=== PATIENT | female | born 1965 | race Caucasian/White ===

== ENCOUNTER 2025-07-01 13:53 | Outpatient (AMB) | payer OTHER, SELFPAY ==
--- NOTE | 2025-07-01 13:54 | MHC.OFFVIS ---
Vital Signs 07/01/25 13:55 Height 5 ft 5 in Weight 183 lb 13.848 oz BMI 30.6 BP 132/74 Blood Pressure Location Lt brachial Position Sitting Pulse 90 Pulse Source Pulse Oximeter Pulse Oximetry (%) 99 Oxygen Delivery Method Room Air Intake Visit Reasons: Hyperthyroidism Intake Note: New patient present today for Hyperthyroidism. 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 Diagnosed with hypothyroidism in 2004, was on levothyroxine 50 mcg daily for a long time. in 2023 noted to have fluctuations, downtrated from 75 to 25 mcg daily with some adjustements. Has been off it since end of November 2024. Outside labs reviewed 05/21/2025 TSH less than 0.005 Free T4 normal at 1.71 (0.82-1.77 ng/dL) 03/07/2025 TSH less than 0.005 Free T4 2.62 12/09/2024 TSH less than 0.005 Free T4 3.55 Patient currently denies diarrhea or constipation, changes in appearance of eyes or vision changes, tremors, increased diaphoresis. ? Lost 30 lbs from April 2024 to April 2025, and now gained back 8 lbs Some heat intolerance post menopausal Enerygy is much better now Reports anxiety , worsening somehwat Hair loss and dry skin Intermittent palpitations. normal stress test Sep 2024. Menopausal since 56 years. Was having joint pains , resolved. Patient denies any difficulty swallowing, pain on swallowing or voice changes or difficulty breathing. Patient denies any history of childhood neck radiation. Denies having ever used lithium, amiodarone or biotin supplements. has been off biotin since February 2025. Patient denies any family history of thyroid cancer or thyroid disease. Physical exam General: sitting comfortably in no acute distress HEENT: normocephalic/atraumatic, moist oral mucosa Neck: supple, symmetrical, no thyromegaly , no dorsocervical or supraclavicular fat pads Cardiac: normal heart sounds Pulm: normal breath sounds B/L, no added breath sounds Extremities: Very mild tremor noted [facility], [facility] Medical History (Updated 07/01/25 @ 14:28 by Yasmine Leon MD) Hyperthyroidism Surgical History H/O breast biopsy H/O breast surgery History of tonsillectomy History of appendectomy Social History Alcohol intake: current Alcohol intake frequency: a few times a week Patient Tobacco Use Status: Never used Tobacco Physical Exam Vital Signs: Last Vital Signs Pulse 90 07/01/25 13:55 BP 132/74 07/01/25 13:55 Pulse Ox 99 07/01/25 13:55 Oxygen Delivery Method Room Air 07/01/25 13:55 BMI result Body Mass Index 30.6 Assessment & Plan Assessment & Plan (1) Hyperthyroidism: Code(s): E05.90 - Thyrotoxicosis, unspecified without thyrotoxic crisis or storm Category: Medical Plan: 59-year-old female coming in today for initial evaluation of hyperthyroidism. She was diagnosed with hypothyroidism in her 30s and had been on levothyroxine with doses ranging from 50-75 mcg daily for a long time, with stable blood work however that work from March 2024 showed suppressed TSH with a elevated free T4, and dose of levothyroxine was titrated down from 75 mcg daily up to 25 mcg daily with a eventually stopping it in November 2024. She has now been off levothyroxine since end of November 2024. Most recent blood work in April 2025 showed suppressed TSH with normal free T4. Currently not on any biotin supplements. Had this point we will repeat her labs. It might be that she just did not need the levothyroxine and TSH sometimes just take some time to normalize, given her free T4 has normalized this is reassuring. However at this time we will repeat blood work along with the extended antibody panel. If her TSH is low and free T4 is high, with negative antibodies, we will consider doing an uptake and scan. Overall she feels better since stopping the levothyroxine. Does not have any overt symptoms of hyperthyroidism except intermittent palpitations and a very mild tremor. Plan: -ordered TSH, free T4, total T3, TSH receptor, TSI and TPO antibody levels -follow up in 4 weeks to discuss results Plan I spent 45 minutes in reviewing the record, seeing the patient and documenting in the medical record. Orders: Orders Triiodothyronine T3 Total Today E0 - Thyrotoxicosis, unspecified without thyrotoxic crisis or storm Thyroid Stimulating Immunoglob Today E0 - Thyrotoxicosis, unspecified without thyrotoxic crisis or storm Thyroid Stimulating Hormone Today - Thyrotoxicosis, unspecified without thyrotoxic crisis or storm Free T4 (Free Thyroxine) Today E0 - Thyrotoxicosis, unspecified without thyrotoxic crisis or storm Thyrotropin Receptor Antibody Today - Thyrotoxicosis, unspecified without thyrotoxic crisis or storm Thyroid Peroxidase Antibodies Today E0 - Thyrotoxicosis, unspecified without thyrotoxic crisis or storm Coding Level of Care Code New Pt Level 4 (98429) Diagnoses Hyperthyroidism E0 Time Spent (min) 45
[2025-07-01 13:55] VITALS: BP 132/74; PULSE 90; O2SAT 99; BMI 30.6
== END 2025-07-01 14:42 | disposition home or self-care (01) ==
LOC: HO.ENCR 13:53
PROVIDERS: PCP Student in an Organized Health Care Education/Training Program; Visit Provider Student in an Organized Health Care Education/Training Program
DX: E05.90 Thyrotoxicosis, unspecified without thyrotoxic crisis or storm (principal)
CPT/HCPCS: 99204

== ENCOUNTER 2025-07-01 13:53 | Outpatient (REF) | payer OTHER, SELFPAY | END 2025-07-01 13:54 | disposition home or self-care (01) | LOC: HO.LAB 13:53 | PROVIDERS: PCP Internal Medicine; Visit Provider Student in an Organized Health Care Education/Training Program | DX: E05.90 Thyrotoxicosis, unspecified without thyrotoxic crisis or storm (principal); Z01.84 Encounter for antibody response examination | CPT/HCPCS: 36415; 83520; 84445; 84480; 86376 ==

== ENCOUNTER 2025-07-31 15:25 | Outpatient (AMB) | payer OTHER, SELFPAY ==
[2025-07-31 15:26] VITALS: BP 116/74; PULSE 83; O2SAT 100; BMI 29.9
--- NOTE | 2025-07-31 15:26 | MHC.OFFVIS ---
Vital Signs 07/31/25 15:26 Height 5 ft 5 in Weight 179 lb 14.355 oz BMI 29.9 BP 116/74 Blood Pressure Location Lt brachial Position Sitting Pulse 83 Pulse Source Pulse Oximeter Pulse Oximetry (%) 100 Oxygen Delivery Method Room Air Intake Visit Reasons: Hyperthyroidism Intake Note: Patient present today for Hyperthyroidism office visit. 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 Diagnosed with hypothyroidism in 2004, was on levothyroxine 50 mcg daily for a long time. in 2023 noted to have fluctuations, downtrated from 75 to 25 mcg daily with some adjustements. Has been off it since end of November 2024. Outside labs reviewed 05/21/2025 TSH less than 0.005 Free T4 normal at 1.71 (0.82-1.77 ng/dL) 03/07/2025 TSH less than 0.005 Free T4 2.62 12/09/2024 TSH less than 0.005 Free T4 3.55 Patient currently denies diarrhea or constipation, changes in appearance of eyes or vision changes, tremors, increased diaphoresis. ? Lost 30 lbs from April 2024 to April 2025, and now gained back 8 lbs Some heat intolerance post menopausal Enerygy is much better now Reports anxiety , worsening somehwat Hair loss and dry skin Intermittent palpitations. normal stress test Sep 2024. Menopausal since 56 years. Was having joint pains , resolved. Patient denies any difficulty swallowing, pain on swallowing or voice changes or difficulty breathing. Patient denies any history of childhood neck radiation. Denies having ever used lithium, amiodarone or biotin supplements. has been off biotin since February 2025. Patient denies any family history of thyroid cancer or thyroid disease. Interval history 07/01/25: Total T3-250, TSI antibodies elevated at 245, TPO antibodies elevated at 77, TSH receptor antibodies elevated at 14.19. TSH and free T4 not done. reports anxiety, palpitations and tremor Labs done at [facility] on 07/12/2025 TSH less than 0.005 Free T4 4.79 (0.82-1.77) TSH receptor antibodies 18.7 TSI 21.3 (0.00-0.55) TPO antibodies 111 (0-34 Physical exam General: sitting comfortably in no acute distress HEENT: normocephalic/atraumatic, moist oral mucosa Neck: supple, symmetrical, no thyromegaly , no dorsocervical or supraclavicular fat pads Cardiac: normal heart sounds Pulm: normal breath sounds B/L, no added breath sounds Extremities: Very mild tremor noted Laboratory Tests 07/01/25 15:12 Total T3 250 H Thyroid Stim Immunoglob 245 H Thyroid Peroxidase Ab 77 H TSH Receptor Ab 14.19 H Labs done at [facility] on 07/12/2025 TSH less than 0.005 Free T4 4.79 (0.82-1.77) TSH receptor antibodies 18.7 TSI 21.3 (0.00-0.55) TPO antibodies 111 (0-34) [facility] Medical History (Updated 07/01/25 @ 14:28 by Yasmine Leon MD) Hyperthyroidism Surgical History H/O breast biopsy H/O breast surgery History of tonsillectomy History of appendectomy Social History Alcohol intake: current Alcohol intake frequency: a few times a week Patient Tobacco Use Status: Never used Tobacco Physical Exam Vital Signs: Last Vital Signs Pulse 83 07/31/25 15:26 BP 116/74 07/31/25 15:26 Pulse Ox 100 07/31/25 15:26 Oxygen Delivery Method Room Air 07/31/25 15:26 BMI result Body Mass Index 29.9 Assessment & Plan Assessment & Plan (1) Hyperthyroidism: Code(s): E05.90 - Thyrotoxicosis, unspecified without thyrotoxic crisis or storm Category: Medical Plan: 59-year-old female coming in today for fup of hyperthyroidism. She was diagnosed with hypothyroidism in her 30s and had been on levothyroxine with doses ranging from 50-75 mcg daily for a long time, with stable blood work however that work from March 2024 showed suppressed TSH with a elevated free T4, and dose of levothyroxine was titrated down from 75 mcg daily up to 25 mcg daily with a eventually stopping it in November 2024. She has now been off levothyroxine since end of November 2024. Currently not on any biotin supplements. Had this point we will repeat her labs. Labs done at [facility] on 07/12/2025 TSH less than 0.005 Free T4 4.79 (0.82-1.77) TSH receptor antibodies 18.7 TSI 21.3 (0.00-0.55) TPO antibodies 111 (0-34 Consistent with hyperthyroidism in the setting of Graves disease. At this point we will start her on methimazole. The following were discussed as potential side effects of methimazole: - Serious skin rashes - nausea, vomiting, or severe hepatic injury - Agranulocytosis: a rare side effect of methimazole involves a severe decrease in the production of white blood cells. This condition is extremely serious, but affects only one out of every 200 to 500 people who take an antithyroid drug. Agranulocytosis more commonly occurs within the first three months of starting treatment with an antithyroid drug, but can occur at any time. If patient develops a fever (temperature above 100.5F), or other signs or symptoms of infection, she should stop taking the tapazole and immediately have a complete blood count (CBC) done. Serious and potentially life threatening infections, or even , can occur before agranulocytosis resolves. However, once the antithyroid drug is stopped, agranulocytosis usually resolves within a week. - Arthralgias, myalgias - Renal: Nephritis - Fever Patient will stop medication and call our office if these occur. Plan: -start methimazole 10 mg daily -ordered TSH, free T4, total T3 , CBC with diff, LFTs to be done in 4 weeks, we will reach out with the results -follow up in 4-5 months Plan I spent 30 minutes in reviewing the record, seeing the patient and documenting in the medical record. Orders: Orders Thyroid Stimulating Hormone 4 Weeks E05.90 - Thyrotoxicosis, unspecified without thyrotoxic crisis or storm Triiodothyronine T3 Total 4 Weeks E05.90 - Thyrotoxicosis, unspecified without thyrotoxic crisis or storm Liver Panel 4 Weeks E05.90 - Thyrotoxicosis, unspecified without thyrotoxic crisis or storm Free T4 (Free Thyroxine) 4 Weeks E05.90 - Thyrotoxicosis, unspecified without thyrotoxic crisis or storm Complete Blood Count Auto Diff 4 Weeks E05.90 - Thyrotoxicosis, unspecified without thyrotoxic crisis or storm Medications: New methimazole 10 mg PO DAILY 30 tabs 4RF Patient Instructions: Start methimazole 10 mg daily The following were discussed as potential side effects of methimazole: - Serious skin rashes - nausea, vomiting, or severe hepatic injury - Agranulocytosis: a rare side effect of methimazole involves a severe decrease in the production of white blood cells. This condition is extremely serious, but affects only one out of every 200 to 500 people who take an antithyroid drug. Agranulocytosis more commonly occurs within the first three months of starting treatment with an antithyroid drug, but can occur at any time. If patient develops a fever (temperature above 100.5F), or other signs or symptoms of infection, she should stop taking the tapazole and immediately have a complete blood count (CBC) done. Serious and potentially life threatening infections, or even , can occur before agranulocytosis resolves. However, once the antithyroid drug is stopped, agranulocytosis usually resolves within a week. - Arthralgias, myalgias - Renal: Nephritis - Fever Patient will stop medication and call our office if these occur. If you have fever, flu-like symptoms, sore throat or rash, call us during office hours after holding the medicine. If you have nausea, vomiting, pale stools, dark urine, jaundiced appearance, call us during office hours after holding the medicine. Repeat blood work in 4 weeks, orders placed Coding Level of Care Code Est Pt Level 4 (20562) Diagnoses Hyperthyroidism E05.90 Time Spent (min) 30
== END 2025-07-31 15:55 | disposition home or self-care (01) ==
LOC: HO.ENCR 15:26
PROVIDERS: PCP Student in an Organized Health Care Education/Training Program; Visit Provider Student in an Organized Health Care Education/Training Program
DX: E05.90 Thyrotoxicosis, unspecified without thyrotoxic crisis or storm (principal)
CPT/HCPCS: 99214

== ENCOUNTER 2025-08-30 11:15 | Outpatient (REF) | payer OTHER, SELFPAY ==
[2025-08-30 13:08] LABS: MANUAL DIFF FLAG NO
[2025-08-30 13:39] LABS: Hematocrit 39.9 % (37.0-47.0); Hemoglobin 12.8 g/dl (12.0-16.0); Imm Gran Abs Auto 0.01 X10*3/uL (0.00-0.03); Imm Gran Pct Auto 0.1 % (0.0-0.4); Lymphocytes Absolute Auto 2.5 X10*3/uL (1.2-4.9); Mean Corpuscular HGB Conc 32.1 g/dl (31.0-35.0); Mean Corpuscular Hemoglobin 28.3 pg (27.0-33.0); Mean Corpuscular Volume 88.3 fL (80.0-98.0); NRBC Abs Auto 0.000 X10*3/uL (0.0-0.012); NRBC Pct Auto 0.0 /100WBC (0.0-0.2); Platelet Count 284 X10*3/uL (160-400); Red Blood Count 4.52 X10*6/uL (4.20-5.50); White Blood Count 7.1 X10*3/uL (4.8-10.8)
--- OUTSIDE RECORDS SUMMARY | 2025-08-30 13:39 | XMS_ITS | Data Portability ---
Author Organization [facility], Main Office Address [address] [facility] [address] [place] [id number] Care Team Providers Care Breaker Oiler Name Role Phone KHOA BRAVO Primary Care Provider Unavailgisella e [facility] Orthotic Practitioner GO [facility] Medical Oncologist FAISAL YANES Breast Surgeon [facility] Shaper Setter Assessment Encounter Date Assessment Date Assessment LastModified by Organization Details LastModified Time 04/01/2025 04/01/2025 Discussed with patient the signs/symptom s warranted for a return to office visit and/or an ER visit. Patient understood and agreed with the plan. Not available 04/01/2025 12:00:11 Plan of Treatment Reminders Order Date Submit Date Provider Last Modified By Organization Details Last Modified Time Details Appointments None recor ded. Lab TSH + free T4, serum 2024 025 KELLEY [facility] (Centralized Electronic Ordering - All Locations), Patient Can Go To The Location Of Their Choice, [id number] 5 09:10:10 vitam in D, 25-hy droxy , total , serum 2024 025 KELLEY [facility] (Centralized Electronic Ordering - All Locations), Patient Can Go To The Location Of Their Choice, [id number] 5 09:10:08 CMP, serum or plasm a 2024 025 KELLEY [facility] (Centralized Electronic Ordering - All Locations), Patient Can Go To The Location Of Their Choice, 5 09:10:09 lipid panel , serum 2024 025 KELLEY [facility] (Centralized Electronic Ordering - All Locations), Patient Can Go To The Location Of Their Choice, 5 09:10:09 TSH + free T4, serum 2024 025 KELLEY [facility] (Centralized Electronic Ordering - All Locations), Patient Can Go To The Location Of Their Choice, 5 06:07:38 TSH + free T4, serum 2023 024 KELLEY [facility] (Centralized Electronic Ordering - All Locations), Patient Can Go To The Location Of Their Choice, 18:06:14 lipid panel , serum 2023 024 KELLEY [facility] (Centralized Electronic Ordering - All Locations), Patient Can Go To The Location Of Their Choice, 18:06:15 CMP, serum or plasm a 2023 024 KELLEY [facility] (Centralized Electronic Ordering - All Locations), Patient Can Go To The Location Of Their Choice, 18:06:14 PTH (para thyro id hormo ne), intac t + calci um, serum or plasm a 2023 024 KELLEY [facility] (Centralized Electronic Ordering - All Locations), Patient Can Go To The Location Of Their Choice, 4 18:06:16 vitam in D, 25-hy droxy , total , serum 2023 024 KELLEY [facility] (Centralized Electronic Ordering - All Locations), Patient Can Go To The Location Of Their Choice, 4 18:06:16 TSH + free T4, serum 2022 023 [email or web address] [facility] (Centralized Electronic Ordering - All Locations), Patient Can Go To The Location Of Their Choice, 14:56:16 vitam in D, 25-hy droxy , total , serum 2022 023 KELLEY [facility] (Centralized Electronic Ordering - All Locations), Patient Can Go To The Location Of Their Choice, 3 15:17:59 CMP, serum or plasm a 2022 023 KELLEY [facility] (Centralized Electronic Ordering - All Locations), Patient Can Go To The Location Of Their Choice, 3 15:04:09 lipid panel , serum 2022 023 KELLEY [facility] (Centralized Electronic Ordering - All Locations), Patient Can Go To The Location Of Their Choice, 3 15:04:10 Referral gastr bouchra barbosa ist refer ral - Needs colon cance r adam connorsg 2022 023 trinidad [facility], [address] [facility], [place], [address], 4 08:58:23 Procedures None recor ded. Surgeries None recor ded. Imaging exerc ise stres s echoc ardio gram - had colon oscop y and murmu r was heard by fran montes de oca, she has notic ed dyspn ea on exert ion x 4 weeks . r/o valve probl em 2023 024 trinidad [facility] [place], [address] [place] [address], [place], [address], 5 10:03:42 Medication Orders loraz epam 0.5 mg table t 2023 024 bsolivanmatto s [facility] [address], [place], [address], 5 08:57:56 loraz epam 0.5 mg table t 2022 023 bsolivanmatto s [facility] [address], [place], [address], 5 08:57:56 Patient TargetsNo targets recorded. Patient Instructions Encounter Date Encounter Id Patient Instructions Last Modified By Organization Details Last Modified Time 03/31/2023 [id number] insomnia: care instructions [email or web address] Not available 03/31/2023 11:33:23 learning about colon cancer [email or web address] Not available 03/31/2023 11:33:23 To call or retur n for worsening or concerns [email or web address] Not available 03/31/2023 11:23:17 05/22/2024 [id number] insomnia: care instructions [email or web address] Not available 05/22/2024 09:38:03 learning about colon cancer [email or web address] Not available 05/22/2024 09:38:03 To call or retur n for worsening or concerns jthabet Not available 05/22/2024 09:35:12 09/19/2024 [id number] viral respirator y infection: care instructions [email or web address] Not available 09/19/2024 11:07:54 To call or retur n for worsening or concerns jthabet Not available 09/19/2024 11:04:01 04/01/2025 [id number] hyperthyroidism: care instructions Not available 04/01/2025 10:02:28 Reason for Referral Shaper Setter Referral for Screening for malignant neoplasm of colon Needs colon cancer screening Referring Physician: Alma Rosa Sherman, Family Medicine, Encounter Date: 03/31/2023 Results Created Date Observation Date Name Description Value Unit Range Abnormal Flag Note LastModifiedBy Organization Detail LastModifiedTime 05/16/2005/16/2023 COMPR EHENS NETTE METAB OLIC PANL glucose 104 mg/dL (70-99 ) high Not Available [facility] (Centralized Electronic Ordering - All Locations) Patient Can Go To The Location Of Their Choice, 05/16/2023 15:04:08 05/16/20 23 05/16/2023 COMPR EHENS NETTE METAB OLIC PANL BUN 15 mg/dL (6-20) Not Available [facility] (Centralized Electronic Ordering - All Locations) Patient Can Go To The Location Of Their Choice, 05/16/2023 15:04:08 05/16/20 23 05/16/2023 COMPR EHENS NETTE METAB OLIC PANL creatinine 0.8 mg/dL (0.5-1 .0) Not Available [facility] (Centralized Electronic Ordering - All Locations) Patient Can Go To The Location Of Their Choice, 05/16/2023 15:04:08 05/16/2005/16/2023 COMPR EHENS NETTE METAB OLIC PANL sodium 139 mmol/ L (133-1 45) Not Available [facility] (Centralized Electronic Ordering - All Locations) Patient Can Go To The Location Of Their Choice, 05/16/2023 15:04:08 05/16/2005/16/2023 COMPR EHENS NETTE METAB OLIC PANL potassium 4.4 mmol/ L (3.6-5 .2) Not Available [facility] (Centralized Electronic Ordering - All Locations) Patient Can Go To The Location Of Their Choice, 05/16/2023 15:04:08 05/16/2005/16/2023 COMPR EHENS NETTE METAB OLIC PANL chloride 104 mmol/ L (98-10 7) Not Available [facility] (Centralized Electronic Ordering - All Locations) Patient Can Go To The Location Of Their Choice, 05/16/2023 15:04:08 05/16/2005/16/2023 COMPR EHENS NETTE METAB OLIC PANL bicarbonate 24 mmol/ L (22-29 ) Not Available [facility] (Centralized Electronic Ordering - All Locations) Patient Can Go To The Location Of Their Choice, 05/16/2023 15:04:08 05/16/2005/16/2023 COMPR EHENS NETTE METAB OLIC PANL anion gap 11 (4-17) Not Available [facility] (Centralized Electronic Ordering - All Locations) Patient Can Go To The Location Of Their Choice, 05/16/2023 15:04:08 05/16/2005/16/2023 COMPR EHENS NETTE METAB OLIC PANL albumin 4.3 gm/dL (3.4-4 .8) Not Available [facility] (Centralized Electronic Ordering - All Locations) Patient Can Go To The Location Of Their Choice, 05/16/2023 15:04:08 05/16/2005/16/2023 COMPR EHENS NETTE METAB OLIC PANL calcium 10.7 mg/dL (8.6-1 0.5) high Not Available [facility] (Centralized Electronic Ordering - All Locations) Patient Can Go To The Location Of Their Choice, 05/16/2023 15:04:08 05/16/2005/16/2023 COMPR EHENS NETTE METAB OLIC PANL bilirubin,to edson 0.3 mg/dL (0-1.2 ) Not Available [facility] (Central[facility] Ordering - All Locations) Patient Can Go To The Location Of Their Choice, 05/16/2023 15:04:08 05/16/2005/16/2023 COMPR EHENS NETTE METAB OLIC PANL total protein 6.6 gm/dL (6.2-8 .2) Not Available [facility] (Central[facility] Electronic Ordering - All Locations) Patient Can Go To The Location Of Their Choice, 05/16/2023 15:04:08 05/16/2005/16/2023 COMPR EHENS NETTE METAB OLIC PANL Ag ratio 1.9 Not Available [facility] (Centralized Electronic Ordering - All Locations) Patient Can Go To The Location Of Their Choice, 05/16/2023 15:04:08 05/16/2005/16/2023 COMPR EHENS NETTE METAB OLIC PANL AST 21 U/L (0-32) Not Available [facility] (Central[facility] Electronic Ordering - All Locations) Patient Can Go To The Location Of Their Choice, 05/16/2023 15:04:08 05/16/2005/16/2023 COMPR EHENS NETTE METAB OLIC PANL alk phos 101 U/L (35-10 4) Not Available [facility] (Centralized Electronic Ordering - All Locations) Patient Can Go To The Location Of Their Choice, 05/16/2023 15:04:08 05/16/2005/16/2023 COMPR EHENS NETTE METAB OLIC PANL ALT 16 U/L (0-33) Not Available [facility] (Centralized Electronic Ordering - All Locations) Patient Can Go To The Location Of Their Choice, 05/16/2023 15:04:08 05/16/2005/16/2023 COMPR EHENS NETTE METAB OLIC PANL estimated GFR creatinine 84 mL/mi n/1.7 3_M2 Creat inine based estim ated glome adolfor jeniffertr ation (eGFR ) in adult s is calcu lated using the Natio nal Kidne y Found ation recom hesham d 2020 CKD-E PI equat ion. Estim ates GFR from serum creat inine , age and sex. Not Available [facility] (Centralized Electronic Ordering - All Locations) Patient Can Go To The Location Of Their Choice, 05/16/2023 15:04:08 05/16/2005/16/2023 LIPID PANEL cholesterol, total 236 mg/dL (<200) high Not Available [facility] ([facility] Order[facility] - All Locations) Patient Can Go To The Location Of Their Choice, 05/16/2023 15:04:10 05/16/2005/16/2023 LIPID PANEL triglyceride 163 mg/dL (<150) high Not Available [facility] ([facility] - [facility] Locations) Patient Can Go To The Location Of Their Choice, 05/16/2023 15:04:10 05/16/2005/16/2023 LIPID PANEL HDL chol 73 mg/dL (>39) Not Available [facility] (Central[facility] Electronic Ordering - All Locations) Patient Can Go To The Location Of Their Choice, 05/16/2023 15:04:10 05/16/2005/16/2023 LIPID PANEL LDL cholesterol, calculated 130 mg/dL (0-130 ) Not Available [facility] (Central[facility] Ordering - All Locations) Patient Can Go To The Location Of Their Choice, 05/16/2023 15:04:10 05/16/2005/16/2023 LIPID PANEL non HDL cholesterol (calc) 163 mg/dL (<160) high Not Available [facility] ([facility] Order[facility] - All Locations) Patient Can Go To The Location Of Their Choice, 05/16/2023 15:04:10 05/16/2005/16/2023 FREE T4 free T4 1.21 NG/dL (0.70- 1.80) Not Available [facility] ([facility] Ordering - All Locations) Patient Can Go To The Location Of Their Choice, 05/16/2023 15:17:55 05/16/2005/16/2023 TSH TSH 1.99 uIU/m L (0.4-4 .2) Not Available [facility] (Centralized [facility] Ordering - All Locations) Patient Can Go To The Location Of Their Choice, 05/16/2023 15:17:57 05/16/2005/16/2023 25OH VITAM IN D 25OH vitamin D 39.8 NG/mL (20-50 ) Not Available [facility] ([facility] Ordering - All Locations) Patient Can Go To The Location Of Their Choice, 05/16/2023 15:17:59 06/02/2006/02/2023 PH CORRE CTED IONIZ ED CALCI UM pH corrected ionized calcium 1.35 mmol/ L (1.13- 1.32) high Not Available [facility] (Centralized Electronic Ordering - All Locations) Patient Can Go To The Location Of Their Choice, 06/02/2023 20:29:30 06/02/2006/02/2023 BASIC METAB OLIC PANEL glucose 102 mg/dL (70-99 ) high Not Available [facility] (Centralized Electronic Ordering - All Locations) Patient Can Go To The Location Of Their Choice, 06/02/2023 20:42:10 06/02/2006/02/2023 BASIC METAB OLIC PANEL BUN 14 mg/dL (6-20) Not Available [facility] (Centralized Electronic Ordering - All Locations) Patient Can Go To The Location Of Their Choice, 06/02/2023 20:42:10 06/02/2006/02/2023 BASIC METAB OLIC PANEL creatinine 0.8 mg/dL (0.5-1 .0) Not Available [facility] (Central[facility] Electronic Ordering - All Locations) Patient Can Go To The Location Of Their Choice, 06/02/2023 20:42:10 06/02/2006/02/2023 BASIC METAB OLIC PANEL sodium 139 mmol/ L (133-1 45) Not Available [facility] (Centralized Electronic Ordering - All Locations) Patient Can Go To The Location Of Their Choice, 06/02/2023 20:42:10 06/02/2006/02/2023 BASIC METAB OLIC PANEL potassium 4.4 mmol/ L (3.6-5 .2) Not Available [facility] ([facility]ized Electronic Ordering - All Locations) Patient Can Go To The Location Of Their Choice, 06/02/2023 20:42:10 06/02/2006/02/2023 BASIC METAB OLIC PANEL chloride 104 mmol/ L (98-10 7) Not Available [facility] ([facility]ized [facility] Ordering - All Locations) Patient Can Go To The Location Of Their Choice, 06/02/2023 20:42:10 06/02/2006/02/2023 BASIC METAB OLIC PANEL bicarbonate 25 mmol/ L (22-29 ) Not Available [facility] ([facility] Ordering - All Locations) Patient Can Go To The Location Of Their Choice, 06/02/2023 20:42:10 06/02/2006/02/2023 BASIC METAB OLIC PANEL anion gap 10 (4-17) Not Available [facility] ([facility] Ordering - All Locations) Patient Can Go To The Location Of Their Choice, 06/02/2023 20:42:10 06/02/2006/02/2023 BASIC METAB OLIC PANEL calcium 10.2 mg/dL (8.6-1 0.5) Not Available [facility] ([facility] Ordering - All Locations) Patient Can Go To The Location Of Their Choice, 06/02/2023 20:42:10 06/02/2006/02/2023 BASIC METAB OLIC PANEL estimated GFR creatinine 86 mL/mi n/1.7 3_M2 Creat inine based estim ated glome rular filtr ation (eGFR ) in adult s is calcu lated using the Natio nal Kidne y Found ation recom hesham d 2020 CKD-E PI equat ion. Estim ates GFR from serum creat inine , age and sex. Not Available [facility] ([facility] Ordering - All Locations) Patient Can Go To The Location Of Their Choice, 06/02/2023 20:42:10 06/02/2006/02/2023 PTH, INTAC T PTH, intact 66 pg/mL (15-65 ) high Not Available [facility] ([facility] Order[facility] - All Locations) Patient Can Go To The Location Of Their Choice, 06/02/2023 20:45:23 06/02/2006/02/2023 25OH VITAM IN D 25OH vitamin D 43.8 NG/mL (20-50 ) Not Available [facility] ([facility] Ordering - All Locations) Patient Can Go To The Location Of Their Choice, [id number] 06/02/2023 20:56:32 05/22/20 24 05/22/2024 CMP14 (REFL EX HGB A1C) glucose 96 mg/dL 70-99 normal Not Available [facility] ([facility]) [address] [place], [address], 05/23/2024 18:06:14 05/22/20 24 05/22/2024 CMP14 (REFL EX HGB A1C) BUN 15 mg/dL 6-24 normal Not Available [facility] ([facility]) [address] [place], [address], 05/23/2024 18:06:14 05/22/20 24 05/22/2024 CMP14 (REFL EX HGB A1C) creatinine 0.78 mg/dL 0.57-1 .00 normal Not Available [facility] ([facility]) [address] [place], [address], 05/23/2024 18:06:14 05/22/20 24 05/22/2024 CMP14 (REFL EX HGB A1C) eGFR 89 mL/mi n/1.7 3 >59 normal Not Available [facility] ([facility]) [address] [place], [address], 05/23/2024 18:06:14 05/22/20 24 05/22/2024 CMP14 (REFL EX HGB A1C) BUN/creatini ne ratio 19 9-23 normal Not Available [facility] ([facility]) [address] [place], [address], 05/23/2024 18:06:14 05/22/20 24 05/22/2024 CMP14 (REFL EX HGB A1C) sodium 141 mmol/ L 134-14 4 normal Not Available [facility] ([facility]) [address] [place], [address], 05/23/2024 18:06:14 05/22/20 24 05/22/2024 CMP14 (REFL EX HGB A1C) potassium 4.9 mmol/ L 3.5-5. 2 normal Not Available [facility] ([facility]) [address] [place], [address], 05/23/2024 18:06:14 05/22/20 24 05/22/2024 CMP14 (REFL EX HGB A1C) chloride 104 mmol/ L 96-106 normal Not Available [facility] ([facility]) [address] [place], [address], 05/23/2024 18:06:14 05/22/20 24 05/22/2024 CMP14 (REFL EX HGB A1C) carbon dioxide, total 23 mmol/ L 20-29 normal Not Available [facility] ([facility]) [address] [place], [address], 05/23/2024 18:06:14 05/22/20 24 05/22/2024 CMP14 (REFL EX HGB A1C) protein, total 7.0 g/dL 6.0-8. 5 normal Not Available [facility] ([facility]) [address] [place], [address], 05/23/2024 18:06:14 05/22/20 24 05/22/2024 CMP14 (REFL EX HGB A1C) albumin 4.4 g/dL 3.8-4. 9 normal Not Available [facility] ([facility]) [address] [place], [address], 05/23/2024 18:06:14 05/22/20 24 05/22/2024 CMP14 (REFL EX HGB A1C) globulin, total 2.6 g/dL 1.5-4. 5 Not Available [facility] ([facility]) [address] [place], [address], 05/23/2024 18:06:14 05/22/20 24 05/22/2024 CMP14 (REFL EX HGB A1C) bilirubin, total 0.3 mg/dL 0.0-1. 2 normal Not Available [facility] ([facility]) [address] [place], [address], 05/23/2024 18:06:14 05/22/20 24 05/22/2024 CMP14 (REFL EX HGB A1C) alkaline phosphatase 99 IU/L 44-121 normal Not Available [facility] ([facility]) [address] [place], [address], 05/23/2024 18:06:14 05/22/20 24 05/22/2024 CMP14 (REFL EX HGB A1C) AST (SGOT) 16 IU/L 0-40 normal Not Available [facility] ([facility]) [address] [place], [address], 05/23/2024 18:06:14 05/22/20 24 05/22/2024 CMP14 (REFL EX HGB A1C) ALT (SGPT) 13 IU/L 0-32 normal Not Available [facility] ([facility]) [address] [place], [address], 05/23/2024 18:06:14 05/22/20 24 05/23/2024 CMP14 (REFL EX HGB A1C) calcium 10.7 mg/dL 8.7-10 .2 above high normal Mis ified by repea t orlando sis Not Available [facility] ([facility]) [address] [place], [address], 05/23/2024 18:06:14 05/22/20 24 05/23/2024 TSH+F REE T4 TSH 0.005 uIU/m L 0.450- 4.500 below low normal Not Available [facility] ([facility]) [address] [place], [address], 05/23/2024 18:06:14 05/22/20 24 05/23/2024 TSH+F REE T4 T4,free(dire ct) 2.26 NG/dL 0.82-1 .77 above high normal Not Available [facility] ([facility]) [address] [place], [address], 05/23/2024 18:06:14 05/22/20 24 05/23/2024 LIPID PANEL cholesterol, total 250 mg/dL 100-19 9 above high normal Not Available [facility] ([facility]) [address] [place], [address], 05/23/2024 18:06:15 05/22/20 24 05/23/2024 LIPID PANEL triglyceride s 113 mg/dL 0-149 normal Not Available [facility] ([facility]) [address] [place], [address], 05/23/2024 18:06:15 05/22/20 24 05/23/2024 LIPID PANEL HDL cholesterol 64 mg/dL >39 normal Not Available [facility] ([facility]) [address] [place], [address], 05/23/2024 18:06:15 05/22/20 24 05/23/2024 LIPID PANEL VLDL cholesterol tangela 20 mg/dL 5-40 Not Available [facility] ([facility]) [address] [place], [address], 05/23/2024 18:06:15 05/22/20 24 05/23/2024 LIPID PANEL LDL chol calc ([facility]) 166 mg/dL 0-99 above high normal Not Available [facility] ([facility]) [address] [place], [address], 05/23/2024 18:06:15 05/22/20 24 05/23/2024 LIPID PANEL LDL calc comment: WHEEL [employer] TRUER Not Available [facility] ([facility]) [address] [place], [address], 05/23/2024 18:06:15 05/22/20 24 05/23/2024 PTH INTAC T+TANGELA CIUM, IONIZ ED calcium, ionized, serum 5.7 mg/dL 4.5-5. 6 above high normal Not Available [facility] ([facility]) [address] [place], [address], 05/23/2024 18:06:15 05/22/20 24 05/23/2024 PTH INTAC T+TANGELA CIUM, IONIZ ED PTH, intact 21 pg/mL 15-65 normal Not Available [facility] ([facility]) [address] [facility], [place], [address], 05/23/2024 18:06:15 05/22/20 24 05/23/2024 VITAM IN D, 25-HY DROXY vitamin D, 25-hydroxy 36.9 NG/mL 30.0-1 00.0 Vitam in D defic iency has been defin ed by the Insti tute of Medic ine and an Endoc rine Socie ty pract ice guide line as a level of serum 25-OH vitam in D less than 20 ng/mL (1,2) . The Endoc rine Socie ty went on to furth er defin e vitam in D insuf ficie ncy as a level betwe en 21 and 29 ng/mL (2). 1. IOM (Inst itute of Medic ine). 2009. Dieta ry refer ence intak es for calci um and D. Susan higuera [place]: The Natio nal [facility] Press . 2. Dania moreau MF, Jacquelyn tucker [place], Joseluis off-F errar i JEFFERS, et al. Evalu ation , treat ment, and preve ntion of vitam in D defic iency : an Endoc rine Socie ty clini tangela pract ice guide line. JCEM. 2010; 96(7) :1911 -30. Not Available [facility] ([facility]) [address] [facility], [place], [address], 05/23/2024 18:06:16 07/06/20 24 07/07/2024 TSH+F REE T4 TSH <0.005 uIU/m L 0.450- 4.500 below low normal Not Available [facility] ([facility]) [address] [place], [address], 07/07/2024 06:10:02 07/06/20 24 07/07/2024 TSH+F REE T4 T4,free(dire ct) 2.37 NG/dL 0.82-1 .77 above high normal Not Available [facility] ([facility]) [address] [place], [address], 07/07/2024 06:10:02 08/31/20 24 09/01/2024 TSH+F REE T4 TSH <0.005 uIU/m L 0.450- 4.500 below low normal Not Available [facility] ([facility]) [address] [place], [address], 09/01/2024 07:25:55 08/31/20 24 09/01/2024 TSH+F REE T4 T4,free(dire ct) 2.79 NG/dL 0.82-1 .77 above high normal Not Available [facility] ([facility]) [address] [place] [address], [address], 09/01/2024 07:25:55 10/19/20 24 10/20/2024 TSH+F REE T4 TSH <0.005 uIU/m L 0.450- 4.500 below low normal Not Available [facility] ([facility]) [address] [place], [address], 10/20/2024 06:07:48 10/19/20 24 10/20/2024 TSH+F REE T4 T4,free(dire ct) 2.73 NG/dL 0.82-1 .77 above high normal Not Available [facility] ([facility]) [address] [place], [address], 10/20/2024 06:07:48 12/08/19 25 12/09/2024 TSH+F REE T4 TSH <0.005 uIU/m L 0.450- 4.500 below low normal Not Available [facility] ([facility]) [address] [place], [address], 12/09/2024 08:06:49 12/08/1912/09/2024 TSH+F REE T4 T4,free(dire ct) 3.55 NG/dL 0.82-1 .77 above high normal Not Available [facility] ([facility]) [address] [place], [address], 12/09/2024 08:06:49 03/06/20 25 03/07/2025 TSH+F REE T4 TSH <0.005 uIU/m L 0.450- 4.500 below low normal Not Available [facility] ([facility]) [address] [place], [address], 03/07/2025 06:13:05 03/06/2003/07/2025 TSH+F REE T4 T4,free(dire ct) 2.62 NG/dL 0.82-1 .77 above high normal Not Available [facility] ([facility]) [address] [place], [address], 03/07/2025 06:13:05 05/20/20 25 05/20/2025 TSH+F REE T4 TSH <0.005 uIU/m L 0.450- 4.500 below low normal Not Available [facility] ([facility]) [address] [place], [address], 05/21/2025 06:07:37 05/20/20 25 05/20/2025 TSH+F REE T4 T4,free(dire ct) 1.71 NG/dL 0.82-1 .77 normal Not Available [facility] ([facility]) [address] [place], [address], 05/21/2025 06:07:37 09/27/20 23 09/26/2023 MAMMO , scree lm, digit al, bilat eral No observ ation record ed. [email or web address] [facility] [address] [place], [address], 09/28/2023 08:40:43 04/19/20 24 04/18/2024 MAMMO , scree lm, bilat eral No observ ation record ed. [facility] [place] [address] [place], [address], 04/19/2024 08:11:46 10/25/19 25 10/11/2024 stres s echoc ardio gram No observ ation record ed. KELLEY Not Available 2024 16:24:20 05/02/20 25 05/01/2025 MAMMO , scree lm, digit al, bilat eral No observ ation record ed. [email or web address] [facility] [place] [address] [place], [address], 05/06/2025 08:56:47 Result Notes None recorded. Problems Name Problem SNOMED Code Status Onset Date Resolution Date Notes Provider Name and Address Organization Details Recorded Time Neurolog ical symptom 064311210 Active Ignacio benitez MD [address] [facility] [address], [place], [id number], [facility] 6 14:22:35 Patient status finding [id number] Completed 12/19/2015 Ignacio benitez MD [address] [facility] [address], [place], [address], [facility] 6 14:22:35 Adult health examinat ion Completed 12/19/2015 Ignacio benitez MD [address] [facility] [address], [place], [address], [facility] 6 14:22:35 Acquired hypothyr oidism [id number] Active Ignacio benitez MD [address], [place], [address], [facility] 6 14:22:34 Screenin g for malignan t neoplasm of breast Active Ignacio benitez MD [address], [place], [address], [facility] 6 14:22:35 Acute pharyngi tis 545200128 Completed 201105/30/2014 RECORDED 07/04/20 12 1:15PM BY MARY HUDSON ON/ADDEN DUM Ignacio benitez MD [address] [facility] [address], [place], [address], [facility] 6 14:22:35 Screenin g for malignan t neoplasm of breast Completed 201105/30/2014 RECORDED 07/04/20 12 1:15PM BY MARY HUDSON ON/ADDEN DUM Ignacio benitez MD [address], [place], [address], [facility] 6 14:22:35 Screenin g for malignan t neoplasm of cervix Completed 201105/30/2014 RECORDED 07/04/20 12 1:15PM BY MARY HUDSON ON/ADDEN DUM Ignacio benitez MD [address], [place], [address], [facility] 6 14:22:35 Hypothyr oidism 30065206 Completed 201105/30/2014 RECORDED 07/04/20 12 1:15PM BY MARY HUDSON ON/ADDEN DUM [facility]ins [facility] 5 08:58:31 Influenz a with respirat ory manifest ation other than pneumoni a Completed 201105/30/2014 RECORDED 07/04/20 12 1:15PM BY MARY HUDSON ON/DAVID benitez MD [address], [place], [address], [facility] 6 14:22:35 Influenz a vaccine needed [id number] 06 Completed 201105/30/2014 RECORDED 07/04/20 12 1:22PM BY GLYNN RAUSCH I, OFFICE VISIT Ignacio benitez MD [address], [place], [address], [facility] 6 14:22:35 Acute pharyngi tis 017051745 Completed 201105/31/2014 RECORDED 07/04/20 12 1:15PM BY MARY HUDSON ON/DAVID benitez MD [address], [place], [address], [facility] 6 14:22:35 Screenin g for malignan t neoplasm of breast Completed 201105/31/2014 RECORDED 07/04/20 12 1:15PM BY MARY HUDSON ON/DAVID benitez MD [address], [place], [address], [facility] 6 14:22:35 Screenin g for malignan t neoplasm of cervix Completed 201105/31/2014 RECORDED 07/04/20 12 1:15PM BY MARY HUDSON ON/DAVID benitez MD [address], [place], [address], [facility] 6 14:22:35 Hypothyr oidism 65032520 Completed 201105/31/2014 RECORDED 07/04/20 12 1:15PM BY MARY HUDSON ON/ADDEN DUM Cornelia robbins MA [facility] 5 08:58:31 Influenz a with respirat ory manifest ation other than pneumoni a Completed 201105/31/2014 RECORDED 07/04/20 12 1:15PM BY MARY HUDSON ON/ADDEN DUM Ignacio benitez MD [address], [place], [address], [facility] 6 14:22:35 Influenz a vaccine needed [id number] 06 Completed 201105/31/2014 RECORDED 07/04/20 12 1:22PM BY GLYNN RAUSCH I, OFFICE VISIT Ignacio benitez MD [address], [place], [address], [facility] 6 14:22:35 Acute pharyngi tis 210459718 Completed 201105/07/2014 RECORDED 07/04/20 12 1:15PM BY MARY HUDSON ON/DAVID benitez MD [address], [place], [address], [facility] 6 14:22:35 Screenin g for malignan t neoplasm of breast Completed 201105/07/2014 RECORDED 07/04/20 12 1:15PM BY MARY HUDSON ON/DAVID benitez MD [address], [place], [address], [facility] 6 14:22:35 Screenin g for malignan t neoplasm of cervix Completed 201105/07/2014 RECORDED 07/04/20 12 1:15PM BY MARY HUDSON ON/ADDEN DUM Ignacio benitez MD [address], [place], [address], [facility] 6 14:22:35 Hypothyr oidism 03719668 Completed 201105/07/2014 RECORDED 07/04/20 12 1:15PM BY GUSTAVO HUDSONATI ON/ADDEN DUM Cornelia robbins MA null, [facility] 5 08:58:31 Influenz a with respirat ory manifest ation other than pneumoni a Completed 201105/07/2014 RECORDED 07/04/20 12 1:15PM BY MARY HUDSON ON/ADDEN DUM Ignacio benitez MD [address] [facility] [address], [place], [address], [facility] 6 14:22:35 Influenz a vaccine needed [id number] 06 Completed 201105/07/2014 RECORDED 07/04/20 12 1:22PM BY GLYNN RAUSCH I, OFFICE VISIT Ignacio benitez MD [address], [place], [address], [facility] 6 14:22:35 Adult health examinat ion Completed 201105/07/2014 RECORDED 07/04/20 12 1:15PM BY MARY HUDSON ON/ADDEN DUM Ignacio benitez MD [address], [place], [address], [facility] 6 14:22:35 Atypical lobular hyperpla neli of breast 088561922 Active 2015 Referred to medical oncology for consulta tion Ignacio benitez MD [address] [facility] [address], [place], [address], [facility] 6 14:22:34 Atypical ductal hyperpla neli of breast 074016278 Active 2015 Referred to medical oncology for consulta tion. Risk of developi ng CA 30% Ignacio benitez MD [address], [place], [place], [address], [facility] 6 14:22:35 Hyperlip idemia 77368841 Active 2021 Alma Rosa Sherman, [facility] [address], [place], [place], [address], [facility] 2 15:52:22 Anxiety 25660525 Active 2021 Alma Rosa Sherman, [facility] [address], [place], [place], [address], [facility] 2 15:52:22 Vitamin D deficien cy 85583860 Active 2021 Alma Rosa Sherman, [facility] [address], [place], [address], [facility] 2 15:52:22 Palpitat ions 95043543 Active 2021 Alma Rosa Sherman, [facility] [address], [place], [place], [address], [facility] 2 15:52:22 Insomnia 192916316 Active 2021 Alma Rosa Sherman, [facility] [address], [place], [address], [facility] 2 15:52:22 Mild major depressi on, single episode 82378096 Active 2021 Alma Rosa Sherman, [facility] [address], [place], [address], [facility] 2 16:25:09 Tendinos is 772864184 Active 2022 right ankle seen at [facility] treated conserva saurabh benitez MD [address], [place], [address], [facility] 3 08:48:32 Hypercal cemia 39840010 Active 2022 Alma Rosa Sherman, [facility] [address], [place], [address], [facility] 3 14:29:43 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 Alma Rosa Sherman, [facility] [address], [place], [address], [facility] 4 09:37:39 Hypothyr oidism 11882078 Active 2023 Cornelia robbins [place] null, [facility] 5 08:58:30 Serum thyroid stimulat ing hormone level outside referenc e range 559210584 Active 2023 [facility] [address], [place], [address], [facility] 4 09:32:04 Viral upper respirat ory tract infectio n 595965580 Completed 202305/27/2025 Cornelia robbins [place] null, [facility] 5 08:58:34 Heart murmur 56471346 Active 2023 Alma Rosa Sherman [facility] [address], [place], [address], [facility] 4 11:06:32 Dyspnea on exertion 91241029 Active 2023 BHAVANA Bee [address], [place], [address], [facility] 4 11:10:36 Problem Notes None recorded. Procedures Surgical History Date Name Laterality Status Provider Name and Address Organization Details Recorded Time 05/01/20 25 Most Recent Mammogram completed Bambi Hannah [facility] 05/06/2025 08:56:43 05/01/20 25 Mammogram screening completed Bambi Hannah [facility] 05/06/2025 08:56:26 09/11/20 24 Colonoscopy completed Chelsi Aparicio [facility] 09/13/2024 09:15:29 08/16/20 23 Date of Last Pap Smear completed BHAVANA Bee [address] [facility], [place], [address], [facility] 05/22/2024 09:44:45 11/29/19 19 Ultrasound breast limited completed Shira Giraldo [facility] 11/30/2018 10:04:44 12/09/19 16 Breast Surgery completed Ignacio Harris MD [address] [facility], [place], [address], [facility] 12/19/2015 07:21:34 08/21/20 15 Breast Biopsy completed Jodi Vásquez [facility] 08/22/2015 11:24:52 10/24/19 08 dilation and curettage completed Cornelia benavides MA [facility] 05/27/2025 09:00:17 Tonsillectomy completed Radha Díaz [facility] 11/27/2014 09:04:39 Appendectomy completed Radha Díaz [facility] 11/27/2014 09:04:39 Imaging Results None recorded. Procedure Notes None recorded. Medical Equipment None Reported. Allergies No known drug allergies Medications Name Sig Start Date Stop Date Status Note LastModified by Organization Details LastModified Time azithromy eula 250 mg tablet 03/31 completed Not Available Not Available Not Available CombiPatc h 0.05 mg-0.14 mg/24 hr transderm al 08/16 completed Not Available Not Available Not Available ibuprofen 800 mg tablet 05/18 completed Not Available Not Available Not Available benzonata te 200 mg capsule THREE TIMES DAILY 2007 active RECORDED 03/24/20 09 5:34PM BY IGNACIO ANTHONY MD, MARY ON/ADDEN DUM; Not Available Not Available Not Available peg-elect rolyte solution 420 gram oral solution 09/19 completed Not Available Not Available Not Available levothyro xine 25 mcg tablet Take 1 tablet every day by oral route as directed for 30 days. 12/13 completed Not Available Not Available Not Available lorazepam 0.5 mg tablet Take 1 tablet every day by oral route at bedtime for 30 days. 05/27 completed Not Available Not Available Not Available Euthyrox 75 mcg tablet TAKE ONE TABLET BY MOUTH EVERY DAY 09/19 completed Not Available Not Available Not Available levothyro xine 50 mcg tablet one tanlet by mouth Tuesday through , none Tue-Tue- 12/13 completed Not Available Not Available Not Available triamcino lone acetonide 55 mcg nasal spray aerosol 02/05 completed RECORDED 02/06/20 11 3:52PM BY IGNACIO ANTHONY MD, MARY ON/ADDEN DUM; Not Available Not Available Not Available amoxicill in 250 mg capsule 08/16 completed Not Available Not Available Not Available albuterol (refill) 90 mcg/actua tion aerosol inhaler TID 02/05 completed RECORDED 02/06/20 11 3:52PM BY IGNACIO ANTHONY MD, MARY ON/ADDEN DUM;THIS ORDER DISCONTI NUED PER [facility]. Not Available Not Available Not Available Vitamin D 05/27 completed Not Available Not Available Not Available diclofena c 1 % topical gel appply thin layer prn 05/27 completed Not Available Not Available Not Available B-12 DOTS 05/27 completed Not Available Not Available Not Available magnesium citrate 100 mg tablet Take 1 tablet every day by oral route in the morning. 02/19 completed Not Available Not Available Not Available Women's Multivita min Take 1 every day 12/12 completed Not Available Not Available Not Available levothyro xine 37.5 mcg capsule Take 1 capsule every day by oral route as directed for 30 days. 09/19 completed Not Available Not Available Not Available Vitals Date Recorded Body height Body mass index (BMI) Body weight Oxygen saturation Oxygen saturation in Arterial blood by Pulse oximetry Heart rate Body temperature Systolic And Diastolic Provider Name and Address Organization Details Last Updated DateTime 3 165.1 cm 35.3 kg/m2 82255.5 8 g 99 % 99 % 72 /min 97.5 [degF] 124/75 mm[Hg] Stephanie Almodovar MA [facility] 3 11:10:58 Date Recorded Body height Body mass index (BMI) Body weight Heart rate Oxygen saturation Oxygen saturation in Arterial blood by Pulse oximetry Body temperature Systolic And Diastolic Provider Name and Address Organization Details Last Updated DateTime 5 165.1 cm 30.1 kg/m2 41121.2 2 g 67 /min 99 % 99 % 97.3 [degF] 127/83 mm[Hg] Jessica Zapata MA [facility] 5 09:33:07 Date Recorded Body height Body mass index (BMI) Body weight Heart rate Oxygen saturation Oxygen saturation in Arterial blood by Pulse oximetry Body temperature Systolic And Diastolic Provider Name and Address Organization Details Last Updated DateTime 4 165.1 cm 33.3 kg/m2 76240.4 7 g 75 /min 98 % 98 % 97.7 [degF] 114/75 mm[Hg] Aubrey le [facility] 4 09:31:18 Date Recorded Body height Body mass index (BMI) Body weight Heart rate Oxygen saturation Oxygen saturation in Arterial blood by Pulse oximetry Body temperature Systolic And Diastolic Provider Name and Address Organization Details Last Updated DateTime 5 165.1 cm 29.6 kg/m2 95158.4 4 g 62 /min 98 % 98 % 97.8 [degF] 112/74 mm[Hg] Cornelia robbins MA [facility] 5 08:55:20 Date Recorded Body height Body mass index (BMI) Body weight Heart rate Oxygen saturation Oxygen saturation in Arterial blood by Pulse oximetry Body temperature Systolic And Diastolic Provider Name and Address Organization Details Last Updated DateTime 4 165.1 cm 31.5 kg/m2 16271.9 6 g 91 /min 98 % 98 % 97.3 [degF] 118/82 mm[Hg] Aubrey le MA [facility] 4 10:53:08 Social History Question Answer Notes LastModified by Organizat ion Details LastModified Time Tobacco Smoking Status Never Smoker Not Available [employer] 08/26/2020 03:36:37 Is Blood Transfusion Acceptable In An Emergency? Yes [id number] Information not available 08/26/2020 What Is Your Level Of Caffeine Consumption? Moderate 1 Cup Of Coffee Daily Information not available 05/27/2025 How Much Tobacco Do You Chew? None [id number] Information not available 08/26/2020 What Type Of Diet Are You Following? REGULAR Information not available 05/22/2024 Which Illicit Or Recreational Drugs Have You Used? NONE [id number] Information not available 08/26/2020 Live Alone Or With Others? With Others And Son Information not available 05/18/2018 Do You Take Precautions To Prevent Distracted Driving? No [email or web address] Information not available 03/31/2023 How Often Do You Need To Have Someone Help You When You Read Instructions, Pamphlets, Or Other Written Material From Your Doctor Or Pharmacy? Never [email or web address] Information not available 08/16/2019 Have You Served In The ? No Information not available 08/16/2019 Have You Or Anyone In Your Household Had Any Of The Following Symptoms In The Last 14 Days: Sore Throat, Cough, Chills, Body Aches For Unknown Reasons, Shortness Of Breath For Unknown Reasons, Loss Of Smell, Loss Of Taste, Fever At Or Greater Than 100 Degrees Fahrenheit? No Information not available 12/12/2020 Are You Or Anyone In Your Household A Health Care Provider Or Emergency Responder? Yes Information not available 12/12/2020 To The Best Of Your Knowledge Have You Been In Close Proximity To Any Individual Who Tested Positive For COVID-19? No Information not available 12/12/2020 Have You Recently Traveled To A COVID-19 High Risk Area Or Gathering In The Last 10 Days? No Information not available 12/12/2020 What Was The Date Of Your Most Recent Tobacco Screening? 05/27/2025 Information not available 05/27/2025 How Many Children Do You Have? 1 [place] Information not available 05/27/2025 Seat Belts Used Routinely Yes Information not available 05/18/2018 Are You Sexually Active? Yes Information not available 02/19/2022 Are You Passively Exposed To Smoke? No Information not available 05/27/2025 How Much Tobacco Do You Smoke? No [id number] Information not available 08/26/2020 Do You Use Sunscreen Routinely? Yes [id number] Information not available 08/26/2020 Sex: Unknown Functional Status Question Answer Note LastModified by Organizat ion Details LastModified Time Do you use any illicit or recreational drugs? No Information not available 02/19/2022 Do you or have you ever used any other forms of tobacco or nicotine? No Information not available 02/19/2022 What is your level of alcohol consumption? Occasional only weekends [id number] Information not available 08/26/2020 Do you or have you ever used smokeless tobacco? Never used smokeless tobacco [id number] Information not available 08/26/2020 Are you currently employed? Yes [id number] Information not available 08/26/2020 Are you able to walk independently without assistance or assistive devices? 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 Never used electronic cigarettes [id number] Information not available 08/26/2020 What is your exercise level? Moderate 5 times a week walking and stretching Information not available 02/19/2022 Mental Status None recorded. Family History Relationship Description Onset Age of this Age Resolved Age Notes LastModified by Organization Details LastModified Time Father History of alcoholism [email or web address] Not available 11/27 09:16:11 Father Hypercholest erolemia [email or web address] Not available 2014 09:16:11 Maternal Grandfather Coronary arterioscler osis [email or web address] Not available 2014 09:16:11 Paternal Grandfather Parkinson's disease [email or web address] Not available 2014 09:16:11 Maternal Grandmother Malignant neoplasm of breast [email or web address] Not available 2014 09:16:11 Maternal Grandmother Malignant neoplasm of ovary [email or web address] Not available 2014 09:16:11 Maternal Grandmother Malignant neoplasm of urinary bladder [email or web address] Not available 2014 09:16:11 Mother Atrial fibrillation [email or web address] Not available 11:55:41 Medical History Condition Response Coronary Artery Disease N Other N Gout N Kidney Stones N Blood Diseases N Hyperthyroidism N Breast Cancer N mrsa exposure N Hypothyroidism N Lung Disease N COPD N Depression N Developmental or Behavioral Disorders N Defects or Inherited Disease N Breast Problem N Anesthesia Complications N Headaches/Migraines N Anxiety Disorder N Varicose Veins N Muscle, Joint, or Bone Problems N Obesity N Vision or Eye Problems N Arthritis N Head Injury/Concussion N Infertility N Polyps N Mental Disorder N Congenital Anomalies N Acid Reflux (GERD) N Cancer N Stroke N ADHD N Endometriosis N High Cholesterol N Liver Disease N Fibromyalgia N Headaches N Kidney Disease N Heart Problems N Ear or Hearing Problems N Hospitalizations N Thyroid Problems Y GI Problems N Developmental Delay N Acne N Skin Problems N Eating Disorder N Anemia N Constipation N Bladder Problems N Mental Illness N Ovarian Cancer N Diabetes N Bedwetting N Blood Transfusions N Seizures/Epilepsy N Heart Problems/Murmur N Tuberculosis N AIDS/HIV N Congestive Heart Failure (CHF) N Eczema N Diverticulitis N Abuse/Domestic Violence N Asthma N Allergies N Reflux/GERD N Hepatitis N Heart Disease N Pulmonary Embolism N Hypertension N Chicken Pox N Autism Spectrum Disorder (ASD) N Osteoporosis N Gynecological History Statement/Question Response Abnormal Pap N Flow Moderate Sexually Active? N STIs/STDs N Menses Monthly N Date of Last Pap Smear 08/16/2023 Current Control Method None Most Recent Mammogram 05/01/2025 LMP Unknown Obstetrics History GPAL:G 1 P 1 0 0 1 Type Value Full Term 1 Living 1 Total 1 Immunizations Vaccine Type Date Status Note Provider Nam e and Address Organization Details Recorded Time Influenza, split virus, trivalent, PF 4 completed Tigist mclaughlin [facility] 11/27/2014 09:13:48 Influenza, split virus, trivalent, preservative 2 completed KIKI Recio [facility] 03/31/2023 11:02:54 COVID-19, mRNA, LNP-S, PF, 30 mcg/0.3 mL dose 1 completed [place]IKI Recio [facility] 03/31/2023 11:02:54 COVID-19, mRNA, LNP-S, PF, 30 mcg/0.3 mL dose 1 completed [place]IKI Recio [facility] 03/31/2023 11:02:54 Influenza, split virus, quadrivalent, PF 1 completed [place]IKI Recio [facility] 03/31/2023 11:02:54 Influenza, MDCK, quadrivalent, PF 3 [facility] 10:48:20 Tdap 8 completed Not Available [facility] 11/10/2019 02:21:48 Past Encounters Encounter ID Performer Location Encounter Start Date Encounter Closed Date Diagnosis/Indication Diagnosis SNOMED-CT Code Diagnosis ICD10 Code Diagnosis IMO Codes Diagnosis Note [id number] [facility]ce [id number] [facility] [place] [address] 10/28/2004 00:00:00 [id number] autoE[employer] erce [address] [facility] [place] [address] 12/04/2004 00:00:00 [id number] autoEComm erce [address] [facility] [place] [address] 02/22/2007 00:00:00 [id number] autoEComm erce [address] [facility] [place] [address] 12/01/2006 00:00:00 [id number] auto[employer] erce [address] [facility] [place] [address] 01/15/2008 00:00:00 [id number] auto[employer] erce [address] [facility] [place] [address] 12/05/2008 00:00:00 [id number] auto[employer] erce [address] [facility] [place] [address] 05/19/2009 00:00:00 [id number] [employer] erce [id number] [facility] [place] [address] 02/02/2011 00:00:00 [id number] auto[employer]Comm erce [address] [facility] [place] [address] 07/04/2012 00:00:00 [id number] Alma Rosa Sherman [facility] Main Office [address] [facility] [address] [place], [place] [address] 11/20/2014 15:29:41 11/20/2014 16:17:16 Neurological symptom 261108608 Resolve d, she did feel she had a low BP- could be related to low BP or herbal supplement with high levels of caffeine. She should monitor and if she has sx again call/ return for further work-up. Negative carotid US, she feels great now. Stay well hydrated, eat well balanced meals, exercise regularly. You may need to discontinu e herbal weight loss supplement . Due for PE next week, will have blood work done prior to her appt. Acquired hypothyroidism 885487048 Anemia screening 105599096 Hyperlipid emia screening 646306942 [id number] Alma Rosa Sherman [facility] Main Office [address] [facility] [address] [place], [place] [address] 11/27/2014 08:57:31 11/27/2014 09:33:51 Adult health examination 173723041 UTD, all labs WNL. Continue diet and exercise efforts. Will update immunizati on status and screen based on risk factors. Regular dental care, periodic eye examinatio ns, and safety measures advised. Distracted driving discussed. Acquired hypothyroidism 116360063 Continue current meds. [id number] BHAVANA Bee Main Office [address] [place] [address] 05/18/2018 11:32:14 05/18/2018 12:11:42 Adult health examination 711586931 Z00.00 HM UTD, Continue diet and exercise efforts. Will update immunizati on status and screen based on risk factors. Regular dental care, periodic eye examinatio ns, and safety measures advised. Distracted driving discussed. Screening for malignant neoplasm of colon 141466353 Z12.11 Administra tion of viral vaccine 18031398 Z23 Fatigue 11415961 R53.83 Pain of mu ltiple joints 96683169 M25.50 Family his tory of Hypercholesterolemia 853984705 Z83.42 [id number] Ignacio Harris MD Main Office [address] [place] [address] 08/16/2019 08:58:24 08/16/2019 09:55:07 Adult health examination 942542286 Z00.00 HM UTD, Continue diet and exercise efforts. Will update immunizati on status and screen based on risk factors. Regular dental care, periodic eye examinatio ns, and safety measures advised. Distracted driving discussed. Acquired hypothyroidism 435200057 E03.9 Continue current meds. Hyperlipidemia [id number] E78.5 Anxiety 87374128 F41.9 seems to be work related/ situationa l. she is trying to manage on her own with diet and exercise. SSRIs discussed at length for ehr to consider. she will get back to me if she decides to start. [id number] Ignacio Harris MD Main Office [address] [address] 12/12/2020 13:19:14 12/12/2020 14:41:43 Adult health examination 985964637 Z00.00 HM UTD, Continue diet and exercise efforts. Will update immunizati on status and screen based on risk factors. Regular dental care, periodic eye examinatio ns, and safety measures advised. Distracted driving discussed. Acquired hypothyroidism 921748968 E03.9 Continue current meds. Hyperlipidemia 70780101 E78.5 Anxiety 65645115 F41.9 seems to be work related/ situationa l. she is trying to manage on her own with diet and exercise. She agrees to low dose lorazepam to use as needed at bedtime for sleep. Screening for malignant neoplasm of colon 410237402 Z12.11 Palpitations 68160533 R0 0.2 EKG normal sinus rhythm Vitamin D deficiency 347 04372 E55.9 Insomnia 194994023 G47.0 0 [id number] Ignacio Harris MD Main Office [address] [facility] [address] [facility] [place] [address] 02/19/2022 15:31:34 02/19/2022 16:09:05 Adult health examination [id number] Z00.00 HM UTD, Continue diet and exercise efforts. Will update immunizati on status and screen based on risk factors. Regular dental care, periodic eye examinatio ns, and safety measures advised. Distracted driving discussed. Acquired hypothyroidism 532826858 E03.9 Continue current meds. Hyperlipidemia 05093420 E78.5 Anxiety 03936701 F41.9 Screening for malignant neoplasm of colon 604766791 Z12.11 Will schedule appt Vitamin D deficiency 347 84799 E55.9 Insomnia 691264028 G47.0 0 Mild major depression, single episode 67321790 F32.0 PHQ-9 score 1627, she grisel feel sx are imrpoving and she is feeling a little better. Will check labs and recheck in 3 months. SSRIs have been discussed but concerns re: weight gain. [id number] Ignacio Harris MD Main Office [address] [facility] [address] [facility] [place] [address] 03/31/2023 11:01:40 03/31/2023 11:44:51 Adult health examination 808498490 Z00.00 HM UTD, Continue diet and exercise efforts. Will update immunizati on status and screen based on risk factors. Regular dental care, periodic eye examinatio ns, and safety measures advised. Distracted driving discussed. Acquired hypothyroidism 850535834 E03.9 Continue current meds. Hyperlipidemia 02473420 E78.5 Mild major depression, single episode 42282363 F32.0 Anxiety 26458105 F41.9 Screening for malignant neoplasm of colon 199901503 Z12.11 due for colo Vitamin D deficiency 347 30668 E55.9 Insomnia 923546579 G47.0 0 requests refill [id number] Ignacio Harris MD Main Office [address] [facility] [address] [place] [address] 05/22/2024 09:14:05 05/22/2024 10:03:07 Adult health examination 045230226 Z00.00 HM UTD, Continue diet and exercise efforts. Will update immunizati on status and screen based on risk factors. Regular dental care, periodic eye examinatio ns, and safety measures advised. Distracted driving discussed. Acquired hypothyroidism 589350104 E03.9 Continue current meds. Hyperlipidemia 60645199 E78.5 Screening for malignant neoplasm of colon 613471206 Z12.11 due for colo, has appt in August Vitamin D deficiency 347 15856 E55.9 Insomnia 266605251 G47.0 0 requests refill Disorder o f parathyroid gland 89966805 E21.5 Mild major depression, single episode 61031549 F32.0 no current sx, feeling good. [id number] Ignacio Harris MD Main Office [address] [address] [place] [address] 09/19/2024 10:45:52 09/19/2024 11:15:06 Viral upper respiratory tract infection 648589322 J06.9 Sx since Tuesday, has not tested for covid and declines testing today, supportive treatment encouraged , hydration, rest, mucinex as needed. Heart murmur 88882649 R0 1.1 heart murmur- per anesthesio logy prior to her colonoscop y. No murmur appreciate d on exam today. She has noticed dyspnea one exertion for the last 4 weeks. will check stress echo. Dyspnea on exertion 6084 5006 R06.09 sx x 4 weeks, diff keeping up when walking, and a murmur was heard prior to her colonoscop y. stress echo ordered.If any worsenign sx- chest pain, palpitatio ns, resp distress please go to ED. [id number] Ignacio Harris MD Main Office [address] [facility] [address] [place] [address] 04/01/2025 09:27:24 04/01/2025 10:07:40 Hyperthyroidism 98785679 E05.90 [id number] 03/06/2025- TSH <0.005-T4 2.62-endor ses symptoms of fatigue and weight loss>repor ts she was actively trying to lose weight but noticed over the past year, unintentio nal weight loss-denie s of any red flag symptoms-l ow TSH and high T4 since 04/2024-has been off of levothyrox ine for the past month-repo rts of eating high amounts of dairy and fish which are iodine rich foods in her diet-discu ssed risks/bene fits, AE, of methimazol e-pt decides to trial lifestyle modificati ons, adusting diet to reduce iodine rich foods in her diet-will f/u in 3 months and recheck TSH-discus sed red flag symptoms to monitor for and signs/symp toms that would warrant an ER visit [id number] Ignacio Harris MD Main Office [address] [facility] [address] [place] [address] 05/27/2025 08:40:03 05/27/2025 09:20:28 Adult health examination 150624251 Z00.00 UTD, Continue diet and exercise efforts. Will update immunizati on status and screen based on risk factors. Regular dental care, periodic eye examinatio ns, and safety measures advised. Distracted driving discussed. Acquired hypothyroidism 120435848 E03.9 Currently off medication s-has been on a low iodine diet-has an appt with endocrinol nannette next month, [facility] Hyperlipidemia 35380016 E78.5 Vitamin D deficiency 347 13549 E55.9 Mild major depression, single episode 83498630 F32.0 no current sx, feeling good. Health Concerns Section Related Observation LastModified by Organization Detai ls LastModified Time None Recorded Concern Status LastModified by Organization Details LastModified Time None Recorded Advance Directives Directive None Recorded Payers Insurance Date Sequence Insurance Name Policy Number Policy Barrow Covered Member ID Barrow Member ID Guarantor Name 03/29/2025 1 [facility] ([facility] [id number] Shruti Dempsey [id number] Shruti Dempsey 03/29/2023 1 [facility] (PPO) [id number] Shruti Dempsey [id number] Shruti Burns Dempsey 03/30/2023 1 [facility] [place] [id number] Shruti Dempsey [id number] Shruti Dempsey 06/11/2025 1 [facility] [id number] Shruti BurnsTian Dempsey [id number] Shruti Burns Ke Notes Date Note Type Note Provider Name and Address Organization Details Recorded Time 03/31/2023 text/html Generic HPI TemplateReported by [facility] for PE.Her had colon cancer, struggling to lose weight, concerned.[facility] , had a great trip but this was prior to her 's surgery. He is doing well, stage II colon cancer BHAVANA Bee [address] [place] [address], [phone], [facility] 03/31/2023 12:28:12 05/22/2024 text/html Generic HPI TemplateReported by [facility] for PE.Her had colon cancer, struggling to lose weight, concerned.got a puppy, walking the dog, being active, diet is good.Has colonoscopy scheduled in August. Pap done 08/16/23, mammo UTD. having a lot of hair loss BHAVANA Bee [facility] [address], [phone], [facility] 05/22/2024 10:23:54 09/19/2024 text/html Generic HPI TemplateReported by [facility] s/p colonoscopy, anesthesia heard a murmur and she does have new SOB x the last 4 weeks. colo normal, EKG was ok so procedure was done but needs follow-up.She also started to get sick on Tuesday, coughing more winded than she has been. BHAVANA Bee [address], [phone], [facility] 09/19/2024 11:56:00 04/01/2025 text/html ROS as noted in the HPI Shruti is a 59yr old F who presents for discussion of lab results. Recent TSH levels of <0.005 and T4 2.62. According to her chart, her TSH and T4 levels have remained relatively the same levels since 04/2024. Was briefly on levothyroxine earlier this year and has since been off for a month. Reports of eating iodine rich foods daily such as dairy (eggs, cottage cheese, dairy) and fish such as tuna. Endorses fatigue and weight loss for the past year. Denies of any red flag symptoms. DANICA ECKERT [address] [address], [place], [phone], [facility] 04/01/2025 12:04:52 05/27/2025 text/html ROS as noted in the HPI Shruti is a 59yr old F who presents for annual PE. Has a dog, walking the dog, being active, diet is good. Is doing a low iodine diet. Will see endocrinology in June. DANICA ECKERT [address] [address], [place], [phone], [facility] 05/27/2025 09:21:37 OBGyn Episode No OBEpisode recorded.
[2025-08-30 14:01] LABS: Alanine Aminotransferase 17 U/L (0-31); Albumin Level 4.5 g/dL (3.5-5.0); Alkaline Phosphatase 136 U/L (39-117); Aspartate Amino Transferase 20 U/L (5-31); Total Protein 7.2 g/dL (6.5-8.0)
[2025-08-30 14:15] LABS: Free T4 (Free Thyroxine) 1.55 ng/dL (0.71-1.85); Thyroid Stimulating Hormone < 0.01 uIU/mL (0.32-4.0)
== END 2025-08-30 11:16 | disposition home or self-care (01) ==
LOC: HO.10HDL 11:15
PROVIDERS: Visit Provider Student in an Organized Health Care Education/Training Program
DX: E05.90 Thyrotoxicosis, unspecified without thyrotoxic crisis or storm (principal)
CPT/HCPCS: 36415; 80076; 84439; 84443; 84480; 85025

== ENCOUNTER 2025-10-14 12:04 | Outpatient (REF) | payer OTHER, SELFPAY ==
[2025-10-14 14:02] LABS: Free T4 (Free Thyroxine) 1.16 ng/dL (0.71-1.85); Thyroid Stimulating Hormone < 0.01 uIU/mL (0.32-4.0)
--- OUTSIDE RECORDS SUMMARY | 2025-10-14 15:22 | XMS_ITS | Data Portability ---
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 [phone] Assessment Encounter Date Assessment Date Assessment LastModified [...] Go To The Location Of Their Choice, [address] 06:10:16 vitam in D, 25-hy droxy , total , serum 2024 025 KELLEY [facility] (Centralized Electronic Ordering - All Locations), Patient Can Go To The Location Of Their Choice, [address] 5 06:10:17 CMP, serum or plasm a 2024 025 KELLEY [facility] (Centralized Electronic Ordering - All Locations), Patient Can Go To The Location Of Their Choice, 5 06:10:16 lipid panel , serum 2024 025 KELLEY [facility] (Centralized Electronic Ordering - All Locations), Patient Can Go To The Location Of Their Choice, 5 06:10:17 TSH + free T4, serum 2024 025 KELLEY [facility] (Centralized Electronic Ordering - All Locations), Patient Can Go To The Location Of Their Choice, 5 06:07:38 TSH + free T4, serum 2023 024 KELLEY [facility] (Centralized Electronic Ordering - All Locations), Patient Can Go To The Location Of Their Choice, 4 18:06:14 lipid panel , serum 2023 024 [...] To The Location Of Their Choice, 4 14:56:16 vitam in D, 25-hy droxy , [...] cance r adam connorsg 2022 023 trin[place] [facility], [address] [facility], [place], [address], 4 08:58:23 Procedures None recor ded. Surgeries None recor ded. Imaging exerc ise stres s echoc ardio gram - had colon oscop y and murmu r was heard by fran montes de oca, she has notic ed dyspn ea on exert ion x 4 weeks . r/o valve probl em 2023 024 trinidad [facility] [place], [address] [place] [address], [place], [address], 5 10:03:42 Medication Orders loraz epam 0.5 mg table t 2023 024 bsolivanmatto s [facility] [address], [address], [place], [address], 5 08:57:56 loraz epam 0.5 mg table t 2022 023 bsolivanmatto s [facility] [address], [place], [address], 5 08:57:56 Patient TargetsNo targets recorded. Patient Instructions Encounter Date Encounter Id Patient Instructions Last Modified By Organization Details Last Modified Time 03/31/2023 [id number] insomnia: care instructions [email or web address] Not available 03/31/2023 11:33:23 learning about colon cancer [email or web address] Not available 03/31/2023 11:33:23 To call or retur n for worsening or concerns [email or web address] Not available 03/31/2023 11:23:17 05/22/2024 [id number] insomnia: care instructions [email or web address] Not available 05/22/2024 09:38:03 learning about colon cancer [email or web address] Not available 05/22/2024 09:38:03 To call or retur n for worsening or concerns jthabet Not available 05/22/2024 09:35:12 09/19/2024 [id number] viral respirator y infection: care instructions [email or web address] Not available 09/19/2024 11:07:54 To call or retur n for worsening or concerns [email or web address] Not available 09/19/2024 11:04:01 04/01/2025 [id number] hyperthyroidism: care instructions Not available 04/01/2025 10:02:28 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 for Referral 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 Referral for Screening for malignant neoplasm of [...] Go To The Location Of Their Choice, [id number] 06/02/2023 20:56:32 05/22/20 24 05/22/2024 CMP14 (REFL EX HGB A1C) glucose 96 mg/dL 70-99 normal Not Available [facility] ([facility]) [address] [place], [address], 05/23/2024 18:06:14 05/22/20 24 05/22/2024 CMP14 (REFL EX HGB A1C) BUN 15 mg/dL 6-24 normal Not Available [facility] ([facility]) [address] [place], [address], 05/23/2024 18:06:14 05/22/20 24 05/22/2024 CMP14 (REFL EX HGB A1C) creatinine 0.78 mg/dL 0.57-1 .00 normal Not Available [facility] ([facility]) [address] [place], [address], 05/23/2024 18:06:14 05/22/20 24 05/22/2024 CMP14 (REFL EX HGB A1C) eGFR 89 mL/mi n/1.7 3 >59 normal Not Available [facility] ([facility]) [address] [place], [address], 05/23/2024 18:06:14 05/22/20 24 05/22/2024 CMP14 (REFL EX HGB A1C) BUN/creatini ne ratio 19 9-23 normal Not Available [facility] ([facility]) [address] [place], [address], 05/23/2024 18:06:14 05/22/20 24 05/22/2024 CMP14 (REFL EX HGB A1C) sodium 141 mmol/ L 134-14 4 normal Not Available [facility] ([facility]) [address] [place], [address], 05/23/2024 18:06:14 05/22/20 24 05/22/2024 CMP14 (REFL EX HGB A1C) potassium 4.9 mmol/ L 3.5-5. 2 normal Not Available [facility] ([facility]) [address] [place], [address], 05/23/2024 18:06:14 05/22/20 24 05/22/2024 CMP14 (REFL EX HGB A1C) chloride 104 mmol/ L 96-106 normal Not Available [facility] ([facility]) [address] [place], [address], 05/23/2024 18:06:14 05/22/20 24 05/22/2024 CMP14 (REFL EX HGB A1C) carbon dioxide, total 23 mmol/ L 20-29 normal Not Available [facility] ([facility]) [address] [place], [address], 05/23/2024 18:06:14 05/22/20 24 05/22/2024 CMP14 (REFL EX HGB A1C) protein, total 7.0 g/dL 6.0-8. 5 normal Not Available [facility] ([facility]) [address] [place], [address], 05/23/2024 18:06:14 05/22/20 24 05/22/2024 CMP14 (REFL EX HGB A1C) albumin 4.4 g/dL 3.8-4. 9 normal Not Available [facility] ([facility]) [address] [place], [address], 05/23/2024 18:06:14 05/22/20 24 05/22/2024 CMP14 (REFL EX HGB A1C) globulin, total 2.6 g/dL 1.5-4. 5 Not Available [facility] ([facility]) [address] [place], [address], 05/23/2024 18:06:14 05/22/20 24 05/22/2024 CMP14 (REFL EX HGB A1C) bilirubin, total 0.3 mg/dL 0.0-1. 2 normal Not Available [facility] ([facility]) [address] [place], [address], 05/23/2024 18:06:14 05/22/20 24 05/22/2024 CMP14 (REFL EX HGB A1C) alkaline phosphatase 99 IU/L 44-121 normal Not Available [facility] [address] [place], [address], 05/23/2024 18:06:14 05/22/20 24 05/22/2024 CMP14 (REFL EX HGB A1C) AST (SGOT) 16 IU/L 0-40 normal Not Available [facility] ([facility]) [address] [place], [address], 05/23/2024 18:06:14 05/22/20 24 05/22/2024 CMP14 (REFL EX HGB A1C) ALT (SGPT) 13 IU/L 0-32 normal Not Available [facility] ([facility]) [address] [place], [address], 05/23/2024 18:06:14 05/22/20 24 05/23/2024 CMP14 (REFL EX HGB A1C) calcium 10.7 mg/dL 8.7-10 .2 above high normal Mis ified by repea t orlando sis Not Available [facility] ([facility]) [address] [place], [address], 05/23/2024 18:06:14 05/22/20 24 05/23/2024 TSH+F REE T4 TSH 0.005 uIU/m L 0.450- 4.500 below low normal Not Available [facility] ([facility]) [address] [place], [address], 05/23/2024 18:06:14 05/22/20 24 05/23/2024 TSH+F REE T4 T4,free(dire ct) 2.26 NG/dL 0.82-1 .77 above high normal Not Available [facility] ([facility] [address] [place], [address], 05/23/2024 18:06:14 05/22/20 24 05/23/2024 LIPID PANEL cholesterol, total 250 mg/dL 100-19 9 above high normal Not Available [facility] ([facility] [address] [place], [address], 05/23/2024 18:06:15 05/22/20 24 05/23/2024 LIPID PANEL triglyceride s 113 mg/dL 0-149 normal Not Available [facility] ([facility] [address] [place], [address], 05/23/2024 18:06:15 05/22/20 24 05/23/2024 LIPID PANEL HDL cholesterol 64 mg/dL >39 normal Not Available [facility] [address] [place], [address], 05/23/2024 18:06:15 05/22/20 24 05/23/2024 LIPID PANEL VLDL cholesterol tangela 20 mg/dL 5-40 Not Available [facility] ([facility] [address] [place], [address], 05/23/2024 18:06:15 05/22/20 24 05/23/2024 LIPID PANEL LDL chol calc ([facility]) 166 mg/dL 0-99 above high normal Not Available [facility] ([facility]) [address] [place], [address], 05/23/2024 18:06:15 05/22/20 24 05/23/2024 LIPID PANEL 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 6 above high normal Not Available [facility] ([facility]) [address] [place], [address], 05/23/2024 18:06:15 05/22/20 24 05/23/2024 PTH INTAC T+TANGELA CIUM, IONIZ ED PTH, intact 21 pg/mL 15-65 normal Not Available [facility] ([facility]) [address] [facility], [place], [address], 05/23/2024 18:06:15 05/22/20 24 05/23/2024 VITAM IN [...] Susan higuera DC: The Natio nal [facility] Press . 2. Dania moreau MF, Jacquelyn tucker [place], Joseluis off-F errar i JEFFERS, et al. Evalu ation , treat ment, and preve ntion of vitam in D defic iency : an Endoc rine Socie ty clini tangela pract ice guide line. JCEM. 2010; 96(7) :1911 -30. Not Available [facility] ([facility]) [address] [facility], [place], [address], 05/23/2024 18:06:16 07/06/20 24 07/07/2024 TSH+F REE T4 TSH <0.005 uIU/m L 0.450- 4.500 below low normal Not Available [facility] ([facility]) [address] [place], [address], 07/07/2024 06:10:02 07/06/20 24 07/07/2024 TSH+F REE T4 T4,free(dire ct) 2.37 NG/dL 0.82-1 .77 above high normal Not Available [facility] ([facility]) [address] [place], [address], 07/07/2024 06:10:02 08/31/20 24 09/01/2024 TSH+F REE T4 TSH <0.005 uIU/m L 0.450- 4.500 below low normal Not Available [facility] ([facility]) [address] [place], [address], 09/01/2024 07:25:55 08/31/20 24 09/01/2024 TSH+F REE T4 T4,free(dire ct) 2.79 NG/dL 0.82-1 .77 above high normal Not Available [facility] ([facility]) [address] [place] [address], [address], 09/01/2024 07:25:55 10/19/20 24 10/20/2024 TSH+F REE T4 TSH <0.005 uIU/m L 0.450- 4.500 below low normal Not Available [facility] ([facility]) [address] [place], [address], 10/20/2024 06:07:48 10/19/20 24 10/20/2024 TSH+F REE T4 T4,free(dire ct) 2.73 NG/dL 0.82-1 .77 above high normal Not Available [facility] ([facility]) [address] [place], [address], 10/20/2024 06:07:48 12/08/19 25 12/09/2024 TSH+F REE T4 TSH <0.005 uIU/m L 0.450- 4.500 below low normal Not Available [facility] ([facility]) [address] [place], [address], 12/09/2024 08:06:49 12/08/1912/09/2024 TSH+F REE T4 T4,free(dire ct) 3.55 NG/dL 0.82-1 .77 above high normal Not Available [facility] ([facility]) [address] [place], [address], 12/09/2024 08:06:49 03/06/20 25 03/07/2025 TSH+F REE T4 TSH <0.005 uIU/m L 0.450- 4.500 below low normal Not Available [facility] ([facility]) [address] [place], [address], 03/07/2025 06:13:05 03/06/2003/07/2025 TSH+F REE T4 T4,free(dire ct) 2.62 NG/dL 0.82-1 .77 above high normal Not Available [facility] ([facility]) [address] [place], [address], 03/07/2025 06:13:05 05/20/20 25 05/20/2025 TSH+F REE T4 TSH <0.005 uIU/m L 0.450- 4.500 below low normal Not Available [facility] ([facility]) [address] [place], [address], 05/21/2025 06:07:37 05/20/20 25 05/20/2025 TSH+F REE T4 T4,free(dire ct) 1.71 NG/dL 0.82-1 .77 normal Not Available [facility] ([facility]) [address] [place], [address], 05/21/2025 06:07:37 10/04/20 25 10/05/2025 VITAM IN D, 25-HY DROXY vitamin D, 25-hydroxy 49.0 NG/mL 30.0-1 00.0 Vitam in D defic [...] 1. IOM (Inst itute of Medic ine). 2010. Dieta ry refer ence intak es for calci um and D. Susan higuera DC: [facility] . 2. Dania moreau MF, Jacquelyn tucker [place], Joseluis off-F errar i JEFFERS, et al. Evalu ation , treat ment, and preve ntion of vitam in D defic iency : an Endoc rine Socie ty clini tangela pract ice guide line. JCEM. 2010; 96(7) :1911 -30. Not Available [facility] ([facility]) [address] [facility], [place], [address], 10/05/2025 06:10:17 09/27/20 23 09/26/2023 MAMMO adam, digit al, bilat eral No observ ation record ed. [email or web address] [facility] [address], [place], [address], 09/28/2023 08:40:43 04/19/20 24 04/18/2024 MAMMadam Bush, bilat eral No observ ation record ed. [email or web address] [facility] [address], [place], [address], 04/19/2024 08:11:46 10/25/19 25 10/11/2024 stres s echoc ardio gram No observ ation record ed. KELLEY Not Available 2024 16:24:20 05/02/2005/01/2025 MAMMO , scree lm, digit al, bilat eral No observ ation record ed. [email or web address] [facility] [address], [place], [address], 05/06/2025 08:56:47 Result Notes None recorded. Problems Name Problem SNOMED Code Status Onset Date Resolution Date Notes Provider Name and Address Organization Details Recorded Time Neurolog ical symptom 786998644 Active Ignacio bush MD [address] [address], [place], [address], [facility] 6 14:22:35 Patient status finding 209315709 Completed 12/19/2015 Ignacio bush MD [address] [address], [place], [address], [facility] 6 14:22:35 Adult health examinat ion Completed 12/19/2015 Ignacio bush MD [address] [address], [place], [address], [facility] 6 14:22:35 Acquired hypothyr oidism 983132915 Active Ignacio bush MD [address] [address], [place], [address], [facility] 6 14:22:34 Screenin g for malignan t neoplasm of breast Active Ignacio bush MD [address] [address], [place], [address], [facility] 6 14:22:35 Acute pharyngi tis 895886929 Completed 201105/30/2014 RECORDED 07/04/20 12 1:15PM BY MARY HUDSON ON/ADDEN SARAY bush MD [address], [place], [address], [facility] 6 14:22:35 Screenin g for malignan t neoplasm of breast Completed 201105/30/2014 RECORDED 07/04/20 12 1:15PM BY MARY HUDSON ON/DAVID bush MD [address], [place], [address], [facility] 6 14:22:35 Screenin g for malignan t neoplasm of cervix Completed 201105/30/2014 RECORDED 07/04/20 12 1:15PM BY MARY HUDSON ON/DAVID bush MD [address] [facility] [address], [place], [address], [facility] 6 14:22:35 Hypothyr oidism 85828261 Completed 201105/30/2014 RECORDED 07/04/20 12 1:15PM BY MARY HUDSON ON/DAVID robbins MA [facility] 5 08:58:31 Influenz a with respirat ory manifest ation other than pneumoni a Completed 201105/30/2014 RECORDED 07/04/20 12 1:15PM BY MARY HUDSON ON/DAVID bush MD [address], [place], [address], [facility] 6 14:22:35 Influenz a vaccine needed [id number] 06 Completed 201105/30/2014 RECORDED 07/04/20 12 1:22PM BY GLYNN RAUSCH I, OFFICE VISIT Ignacio bush MD [address], [place], [address], [facility] 6 14:22:35 Acute pharyngi tis 609650534 Completed 201105/31/2014 RECORDED 07/04/20 12 1:15PM BY MARY HUDSON ON/ADDCYN bush MD [address], [facility] [place], [address], [facility] 6 14:22:35 Screenin g for malignan t neoplasm of breast Completed 201105/31/2014 RECORDED 07/04/20 12 1:15PM BY MARY HUDSON ON/DAVID bush MD [address] [facility] [address], [place], [address], [facility] 6 14:22:35 Screenin g for malignan t neoplasm of cervix Completed 201105/31/2014 RECORDED 07/04/20 12 1:15PM BY MARY HUDSON ON/DAVID bush MD [address] [facility] [address] [address], [place], [address], [facility] 6 14:22:35 Hypothyr oidism 08664128 Completed 201105/31/2014 RECORDED 07/04/20 12 1:15PM BY MARY HUDSON ON/DAVID robbins MA null, [facility] 5 08:58:31 Influenz a with respirat ory manifest ation other than pneumoni a Completed 201105/31/2014 RECORDED 07/04/20 12 1:15PM BY MARY HUDSON ON/DAVID bush MD [address] [facility] [address], [place], [address], [facility] 6 14:22:35 Influenz a vaccine needed [id number] 06 Completed 201105/31/2014 RECORDED 07/04/20 12 1:22PM BY GLYNN RAUSCH I, OFFICE VISIT Ignacio bush MD [address] [facility] [address] [address], [place], [address], [facility] 6 14:22:35 Acute pharyngi tis 797608910 Completed 201105/07/2014 RECORDED 07/04/20 12 1:15PM BY GUSTAVO HUDSONATI ON/ADDEN DUM Ignacio bush MD [address] [facility] [address], [place], [address], [facility] 6 14:22:35 Screenin g for malignan t neoplasm of breast Completed 201105/07/2014 RECORDED 07/04/20 12 1:15PM BY MARY HUDSON ON/ADDEN SARAY bush MD [address] [facility] [address] [address], [place], [address], [facility] 6 14:22:35 Screenin g for malignan t neoplasm of cervix Completed 201105/07/2014 RECORDED 07/04/20 12 1:15PM BY MARY HUDSON ON/ADDEN SARAY bush MD [address] [facility] [address], [place], [address], [facility] 6 14:22:35 Hypothyr oidism 79905535 Completed 201105/07/2014 RECORDED 07/04/20 12 1:15PM BY MARY HUDSON ON/ADDEN DUM Cornelia robbins MA [facility] 5 08:58:31 Influenz a with respirat ory manifest ation other than pneumoni a Completed 201105/07/2014 RECORDED 07/04/20 12 1:15PM BY GUSTAVO HUDSONATI ON/ADDEN DUM Ignacio bush MD [address], [place], [address], [facility] 6 14:22:35 Influenz a vaccine needed [id number] 06 Completed 201105/07/2014 RECORDED 07/04/20 12 1:22PM BY GLYNN RAUSCH I, OFFICE VISIT Ignacio bush MD [address] [facility] [address] [address], [place], [address], [facility] 6 14:22:35 Adult health examinat ion Completed 201105/07/2014 RECORDED 07/04/20 12 1:15PM BY GLYNN RAUSCH I, MARY ON/DAVID bush MD [address] [facility] [address] [address], [place], [address], [facility] 6 14:22:35 Atypical lobular hyperpla neli of breast 954921891 Active 2015 Referred to medical oncology for consulta tion Ignacio bush MD [address], [place], [address], [facility] 6 14:22:34 Atypical ductal hyperpla neli of breast 664454975 Active 2015 Referred to medical oncology for consulta tion. Risk of developi ng CA 30% Ignacio bush MD [address], [place], [address], [facility] 6 14:22:35 Hyperlip idemia 45863012 Active [address] [facility] [address] [address], [place], [address], [facility] 2 15:52:22 Anxiety 21360136 Active [address] [facility] [address] [facility] [address], [facility] [place], [address], [facility] 2 15:52:22 Vitamin D deficien cy 56180630 Active 2021 Alma Rosa Sherman, [facility] [address] [facility] [address] [address], [place], [address], [facility] 2 15:52:22 Palpitat ions 25899913 Active 2021 Alma Rosa [place], [facility] [address] [facility] [address] [address], [place], [address], [facility] 2 15:52:22 Insomnia 403651086 Active 2021 Al[facility] Rosa [place], [facility] [address] [facility] [address], [place], [address], [facility] 2 15:52:22 Mild major depressi on, single episode 89854598 Active 2021 Alma Rosa [place], [facility] [address] [facility] [address], [place], [address], [facility] 2 16:25:09 Tendinos is 948936432 Active 2022 right ankle seen at [facility] treated conserva tively Ignacio bush MD [address] [facility] [address] [address], [place], [address], [facility] 3 08:48:32 Hypercal cemia 68046089 Active 2022 Alma Rosa [place], [facility] [address] [facility] 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 [address] [address], [place], [address], [facility] 4 09:37:39 Hypothyr oidism 49413274 Active 2023 KIKI Sarmiento, [facility] 5 08:58:30 Serum thyroid stimulat ing hormone level outside referenc e range 787293103 Active [address] [facility] [address], [place], [address], [facility] 4 09:32:04 Viral upper respirat ory tract infectio n 208076474 Completed 202305/27/2025 KIKI Sarmiento, [facility] 5 08:58:34 Heart murmur 08752643 Active 2023 BHAVANA Bee [address] [address], [place], [address], [facility] 4 11:06:32 Dyspnea on exertion 10340152 Active 2023 BHAVANA Bee [address] [address], [place], [address], [facility] 4 11:10:36 Problem Notes None recorded. Procedures Surgical History Date Name Laterality Status Provider Name and Address Organization Details Recorded Time 05/01/20 25 Most Recent Mammogram completed Bambi Hannah [facility] 05/06/2025 08:56:43 05/01/20 25 Mammogram screening completed Bambi Hannah [facility] 05/06/2025 08:56:26 09/11/20 24 Colonoscopy completed Chelsi Aparicio [facility] 09/13/2024 09:15:29 08/16/20 23 Date of Last Pap Smear completed BHAVANA Bee [address] [address], [place], [address], [facility] 05/22/2024 09:44:45 11/29/19 19 Ultrasound breast limited completed Shira Giraldo [facility] 11/30/2018 10:04:44 12/09/19 16 Breast Surgery completed Ignacio Harris MD [address] [facility] [address], [place], [address], [facility] 12/19/2015 07:21:34 08/21/20 15 Breast Biopsy completed Jodi Vásquez [facility] 08/22/2015 11:24:52 10/24/19 08 dilation and curettage completed Cornelia benavides MA [facility] 05/27/2025 09:00:17 Tonsillectomy completed Radha Díaz [facility] 11/27/2014 09:04:39 Appendectomy completed Radha Díaz [facility] 11/27/2014 09:04:39 Imaging Results None recorded. Procedure [...] 03/24/20 09 5:34PM BY IGNACIO ANTHONY MD, ANNOTATI ON/DAVID DUM; Not Available Not Available Not Available [...] tanlet by mouth Tuesday through , none Fri-Sat- 12/13 completed Not Available Not Available Not [...] 02/06/20 11 3:52PM BY IGNACIO ANTHONY MD, MAYR ON/ADDEN DUM;THIS ORDER DISCONTI NUED PER [facility]. Not Available Not Available Not [...] mass index (BMI) Body weight Oxygen saturation Heart rate Body temperature Systolic And Diastolic Provider Name and Address Organization Details Last Updated DateTime 3 165.1 cm 35.3 kg/m2 25871.5 8 g 99 % 72 /min 97.5 [degF] 124/75 mm[Hg] Stephanie Almodovar MA [facility] [place] 3 11:10:58 Date Recorded Body height Body mass index (BMI) Body weight Heart rate Oxygen saturation Body temperature Systolic And Diastolic Provider Name and Address Organization Details Last Updated DateTime 5 165.1 cm 30.1 kg/m2 55274.2 2 g 67 /min 99 % 97.3 [degF] 127/83 mm[Hg] Jessica Zapata MA [facility] 5 09:33:07 Date Recorded Body height Body mass index (BMI) Body weight Heart rate Oxygen saturation Body temperature Systolic And Diastolic Provider Name and Address Organization Details Last Updated DateTime 4 165.1 cm 33.3 kg/m2 44223.4 7 g 75 /min 98 % 97.7 [degF] 114/75 mm[Hg] Aubrey le MA [facility] 4 09:31:18 Date Recorded Body height Body mass index (BMI) Body weight Heart rate Oxygen saturation Body temperature Systolic And Diastolic Provider Name and Address Organization Details Last Updated DateTime 5 165.1 cm 29.6 kg/m2 88361.4 4 g 62 /min 98 % 97.8 [degF] 112/74 mm[Hg] Cornelia robbins [facility] 5 08:55:20 Date Recorded Body height Body mass index (BMI) Body weight Heart rate Oxygen saturation Body temperature Systolic And Diastolic Provider Name and Address Organization Details Last Updated DateTime 4 165.1 cm 31.5 kg/m2 67589.9 6 g 91 /min 98 % 97.3 [degF] 118/82 mm[Hg] Aubrey le MA [facility] 4 10:53:08 Social History Question Answer Notes LastModified by Organizat ion Details LastModified Time Tobacco Smoking Status Never Smoker Not Available [employer] 08/26/2020 03:36:37 Is Blood Transfusion Acceptable In An Emergency? Yes [id number] Information not available 08/26/2020 What Is Your Level Of Caffeine Consumption? Moderate 1 Cup Of Coffee Daily Information not available 05/27/2025 How Much Tobacco Do You Chew? None [id number] Information not available 08/26/2020 What Type Of Diet Are You Following? REGULAR Information not available 05/22/2024 Which Illicit Or Recreational Drugs Have You Used? NONE [id number] Information not available 08/26/2020 Live Alone Or With Others? With Others And Son Information not available 05/18/2018 Do You Take Precautions To Prevent Distracted Driving? No [id number] Information not available 03/31/2023 How Often Do [...] How Much Tobacco Do You Smoke? No [id number] Information not available 08/26/2020 Do You Use Sunscreen Routinely? Yes [id number] Information not available 08/26/2020 Sex: Unknown Functional Status Question Answer Note LastModified by Organizat ion Details LastModified Time Do you use any illicit or recreational drugs? No Information not available 02/19/2022 Do you or have you ever used any other forms of tobacco or nicotine? No Information not available 02/19/2022 What is your level of alcohol consumption? Occasional only weekends [id number] Information not available 08/26/2020 Do you or have you ever used smokeless tobacco? Never used smokeless tobacco [id number] Information not available 08/26/2020 Are you currently employed? Yes [id number] Information not available 08/26/2020 Are you able to walk independently without assistance or assistive devices? 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 Never used electronic cigarettes [id number] Information not available 08/26/2020 What is your [...] History Condition Response Coronary Artery Disease N Gout N Other N Blood Diseases N Kidney Stones N Hyperthyroidism N Breast Cancer N mrsa exposure N Lung Disease N Hypothyroidism N Depression N COPD N Defects or Inherited Disease N Developmental or Behavioral Disorders N Breast Problem N Anesthesia Complications N Headaches/Migraines N Varicose Veins N Anxiety Disorder N Muscle, Joint, or Bone Problems N Obesity N Vision or Eye Problems N Arthritis N Head Injury/Concussion N Infertility N Polyps N Mental Disorder N Congenital Anomalies N Acid Reflux (GERD) N Cancer N Stroke N ADHD N Endometriosis N High Cholesterol N Liver Disease N Headaches N Fibromyalgia N Kidney Disease N Heart Problems N Ear or Hearing Problems N Hospitalizations N Thyroid Problems Y GI Problems N Developmental Delay N Acne N Eating Disorder N Skin Problems N Anemia N Constipation N Bladder Problems N Mental Illness N Diabetes N Ovarian Cancer N Bedwetting N Blood Transfusions N Heart Problems/Murmur N Seizures/Epilepsy N Tuberculosis N AIDS/HIV N Congestive Heart Failure (CHF) N Eczema N Abuse/Domestic Violence N Diverticulitis N Asthma N Allergies N Reflux/GERD N [...] virus, trivalent, PF 4 completed Tigist mclaughlin [facility] 11/27/2014 09:13:48 Influenza, split virus, trivalent, preservative 2 completed KIKI Recio [facility] 03/31/2023 11:02:54 COVID-19, mRNA, LNP-S, PF, 30 mcg/0.3 mL dose 1 completed KIKI Recio [facility] 03/31/2023 11:02:54 COVID-19, mRNA, LNP-S, PF, 30 mcg/0.3 mL dose 1 completed KIKI Recio [facility] 03/31/2023 11:02:54 Influenza, split virus, quadrivalent, PF 1 completed KIKI Recio [facility] 03/31/2023 11:02:54 Influenza, MDCK, quadrivalent, PF 3 [facility] 10:48:20 Tdap 8 completed Not Available [facility] 11/10/2019 02:21:48 Past Encounters Encounter ID Performer Location Encounter Start Date Encounter Closed Date Diagnosis/Indication Diagnosis SNOMED-CT Code Diagnosis ICD10 Code Diagnosis IMO Codes Diagnosis Note [id number] [address] [address] [address] [facility] [place] [address] 10/28/2004 00:00:00 [id number] [address] [facility] [facility] [place] [address] 12/04/2004 00:00:00 [id number] [address] [facility] [facility] [place] [address] 02/22/2007 00:00:00 [id number] [address] [facility] [facility] [place] [address] 12/01/2006 00:00:00 [id number] [facility] [address] [facility] [place] [address] 01/15/2008 00:00:00 [id number] [address] [address] [facility] [place] [address] 12/05/2008 00:00:00 [id number] [address] [address] [facility] [place] [address] 05/19/2009 00:00:00 [id number] [address] [address] [facility] [place] [address] 02/02/2011 00:00:00 [id number] [address] [facility] [facility] [place] [address] 07/04/2012 00:00:00 [id number] BHAVANA Bee Main Office [address] [place] [address] 11/20/2014 15:29:41 11/20/2014 16:17:16 Neurological symptom 689637374 Resolve d, she did feel she had [...] done prior to her appt. Acquired hypothyroidism 757749065 Anemia screening 737464874 Hyperlipid emia screening 408200304 [id number] Alma Rosa Sherman [facility] Main Office [address] [facility] [address] [facility] [place] [address] 11/27/2014 08:57:31 11/27/2014 09:33:51 Adult health examination 581335361 UTD, all labs WNL. Continue diet and exercise efforts. Will update immunizati on status and screen based on risk factors. Regular dental care, periodic eye examinatio ns, and safety measures advised. Distracted driving discussed. Acquired hypothyroidism 349651892 Continue current meds. [id number] Alma Rosa [facility] Main Office [address] [facility] [address] [place] [address] 05/18/2018 11:32:14 05/18/2018 12:11:42 Adult health examination 237721237 Z00.00 HM UTD, Continue diet and exercise efforts. Will update immunizati on status and screen based on risk factors. Regular dental care, periodic eye examinatio ns, and safety measures advised. Distracted driving discussed. Screening for malignant neoplasm of colon 525313758 Z12.11 Administra tion of viral vaccine 00391230 Z23 Fatigue 27431808 R53.83 Pain of mu ltiple joints 32344083 M25.50 Family his tory of Hypercholesterolemia 803967125 Z83.42 [id number] Ignacio Harris MD Main Office [address] [facility] [address] [facility] [place] [address] 08/16/2019 08:58:24 08/16/2019 09:55:07 Adult health examination 878828162 Z00.00 HM UTD, Continue diet and exercise efforts. Will update immunizati on status and screen based on risk factors. Regular dental care, periodic eye examinatio ns, and safety measures advised. Distracted driving discussed. Acquired hypothyroidism 294991279 E03.9 Continue current meds. Hyperlipidemia 48256128 E78.5 Anxiety 77469215 F41.9 seems to be work related/ situationa l. she is trying to manage on her own with diet and exercise. SSRIs discussed at length for ehr to consider. she will get back to me if she decides to start. [id number] Ignacio Harris MD Main Office [address] [facility] [address] [place] [address] 12/12/2020 13:19:14 12/12/2020 14:41:43 Adult health examination 115889381 Z00.00 HM UTD, Continue diet and exercise efforts. Will update immunizati on status and screen based on risk factors. Regular dental care, periodic eye examinatio ns, and safety measures advised. Distracted driving discussed. Acquired hypothyroidism 074070875 E03.9 Continue current meds. Hyperlipidemia 17064365 E78.5 Anxiety 27793584 F41.9 seems to be work related/ situationa l. she is trying to manage on her own with diet and exercise. She agrees to low dose lorazepam to use as needed at bedtime for sleep. Screening for malignant neoplasm of colon 189340394 Z12.11 Palpitations 16026606 R0 0.2 EKG normal sinus rhythm Vitamin D deficiency 347 87824 E55.9 Insomnia 268418072 G47.0 0 [id number] Ignacio Harris MD Main Office [address] [facility] [address] [place] [address] 02/19/2022 15:31:34 02/19/2022 16:09:05 Adult health examination 864412729 Z00.00 HM UTD, Continue diet and exercise efforts. Will update immunizati on status and screen based on risk factors. Regular dental care, periodic eye examinatio ns, and safety measures advised. Distracted driving discussed. Acquired hypothyroidism 918319370 E03.9 Continue current meds. Hyperlipidemia 22267817 E78.5 Anxiety 68699524 F41.9 Screening for malignant neoplasm of colon 005635071 Z12.11 Will schedule appt Vitamin D deficiency 347 84027 E55.9 Insomnia 055019554 G47.0 0 Mild major depression, single episode 42662140 F32.0 PHQ-9 score 16/27, she grisel feel sx are imrpoving and she is feeling a little better. Will check labs and recheck in 3 months. SSRIs have been discussed but concerns re: weight gain. [id number] Ignacio Harris MD Main Office [address] [address] 03/31/2023 11:01:40 03/31/2023 11:44:51 Adult health examination 941944917 Z00.00 HM UTD, Continue diet and exercise efforts. Will update immunizati on status and screen based on risk factors. Regular dental care, periodic eye examinatio ns, and safety measures advised. Distracted driving discussed. Acquired hypothyroidism 816360401 E03.9 Continue current meds. Hyperlipidemia 79024141 E78.5 Mild major depression, single episode 14349517 F32.0 Anxiety 99660323 F41.9 Screening for malignant neoplasm of colon 676176578 Z12.11 due for colo Vitamin D deficiency 347 13605 E55.9 Insomnia 208617816 G47.0 0 requests refill [id number] Ignacio Harris MD Main Office [address] [address] 05/22/2024 09:14:05 05/22/2024 10:03:07 Adult health examination 370812276 Z00.00 HM UTD, Continue diet and exercise efforts. Will update immunizati on status and screen based on risk factors. Regular dental care, periodic eye examinatio ns, and safety measures advised. Distracted driving discussed. Acquired hypothyroidism 046986889 E03.9 Continue current meds. 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 [id number] Ignacio Harris MD Main Office [address] [facility] [address] [place] [address] 09/19/2024 10:45:52 09/19/2024 11:15:06 Viral upper respiratory tract infection 162356062 J06.9 Sx since Tuesday, has not tested for covid and declines testing today, supportive treatment encouraged , hydration, rest, mucinex as needed. Heart murmur 92287405 R0 1.1 heart murmur- per anesthesio logy [...] ns, resp distress please go to ED. [id number] Ignacio Harris MD Main Office [address] [address] [place] [address] 04/01/2025 09:27:24 04/01/2025 10:07:40 Hyperthyroidism 30655039 E05.90 [id number] 03/06/2025- TSH <0.005-T4 2.62-endor ses symptoms of [...] toms that would warrant an ER visit [id number] Ignacio Harris MD Main Office [address] [address] [place] [address] 05/27/2025 08:40:03 05/27/2025 09:20:28 Adult health examination 051791733 Z00.00 UTD, Continue diet and exercise efforts. Will update immunizati on status and screen based on risk factors. Regular dental care, periodic eye examinatio ns, and safety measures advised. Distracted driving discussed. Acquired hypothyroidism 219248676 E03.9 Currently off medication s-has been on a low iodine diet-has an appt with endocrinol nannette next month, [facility] Hyperlipidemia 06626412 E78.5 Vitamin D deficiency 347 39601 E55.9 Mild major depression, single episode 89436696 F32.0 no current sx, feeling good. Health Concerns Section Related Observation LastModified by Organization Detai ls LastModified Time None Recorded Concern Status LastModified by Organization Details LastModified Time None Recorded Advance Directives Directive None Recorded Payers Insurance Date Sequence Insurance Name Policy Number Policy Barrow Covered Member ID Barrow Member ID Guarantor Name 03/29/2025 1 [facility] ([facility] [id number] Shruti Dempsey [id number] Shruti Dempsey 03/29/[address] [facility] ([facility]) [id number] Shruti Dempsey [id number] Shruti Dempsey 03/30/2023 1 [facility] ([facility] [id number] Shruti Dempsey [id number] Shruti Dempsey 06/11/[address] [place] [address] [id number] Shruti Dempsey [id number] Shruti Dempsey Notes Date Note Type Note Provider Name and Address Organization Details Recorded Time 03/31/2023 text/html Generic HPI TemplateReported by Patient[facility]resents for PE.Her had colon cancer, struggling to lose weight, concerned.Went to the [facility] with her , had a great trip but this was prior to her 's surgery. He is doing well, stage II colon cancer BHAVANA Bee [address] [address], [place], [address], [facility] 03/31/2023 12:28:12 05/22/2024 text/html Generic HPI TemplateReported by Patient[facility]resents for PE.Her had colon cancer, struggling to lose weight, concerned.got a puppy, walking the dog, being active, diet is good.Has colonoscopy scheduled in August. Pap done 08/16/23, mammo UTD. having a lot of hair loss BHAVANA Bee [address] [address], [place], [address], [facility] [place] 05/22/2024 10:23:54 09/19/2024 text/html Generic HPI TemplateReported by PatientPresents s/p colonoscopy, anesthesia heard a murmur and she does have new SOB x the last 4 weeks. colo normal, EKG was ok so procedure was done but needs follow-up.She also started to get sick on Tuesday, coughing more winded than she has been. BHAVANA Bee [address] [address], [place], [address], [facility] [place] 09/19/2024 11:56:00 04/01/2025 text/html ROS as noted [...] any red flag symptoms. DANICA ECKERT [address] [address], [place], [address], [facility] [place] 04/01/2025 12:04:52 05/27/2025 text/html ROS as noted in the HPI Shruti is a 59yr old F who presents for annual PE. Has a dog, walking the dog, being active, diet is good. Is doing a low iodine diet. Will see endocrinology in June. DANICA ECKERT [address] [address], [place], [address], [facility] 05/27/2025 09:21:37 OBGyn Episode No OBEpisode recorded.
== END 2025-10-14 12:05 | disposition home or self-care (01) ==
LOC: HO.10HDL 12:04
PROVIDERS: Visit Provider Internal Medicine Endocrinology, Diabetes & Metabolism
DX: E05.90 Thyrotoxicosis, unspecified without thyrotoxic crisis or storm (principal)
CPT/HCPCS: 36415; 84439; 84443; 84481

== ENCOUNTER 2025-10-21 14:08 | Outpatient (AMB) | payer OTHER, SELFPAY ==
[2025-10-21 14:14] VITALS: BP 108/70; PULSE 76; O2SAT 98; BMI 31.1
--- NOTE | 2025-10-21 14:14 | A.OFFVIS_ITS ---
Vital Signs 10/21/25 14:14 Height 5 ft 5 in Weight 186 lb 11.704 oz BMI 31.1 BP 108/70 Blood Pressure Location Rt brachial Position Sitting Pulse 76 Pulse Source Pulse Oximeter Pulse Oximetry (%) 98 Oxygen Delivery Method Room Air Intake Visit Reasons: Hyperthyroidism/Dr. Leon pt. Intake Note: Patient present today for Hyperthyroidism follow up. [place] Required: No Accompanied by: Self / Same As Patient Allergies No Known Allergies Allergy (Verified 10/21/25 14:15) Medication List - Last Reconciled 10/21/25 by Edmund Villalobos MD methimazole 20 mg (2 x 10 mg) PO DAILY HPI Comments Details: This is a 59-year-old white female with a history of Graves disease and hyperthyroidism. Patient last saw Dr. Leon on 07/31/2025. Dose was recently inc reased to 20 mg 1 week ago. Having sinus headaches PFSH Medical History (Updated 07/01/25 @ 14:28 by Yasmine Leon MD) Hyperthyroidism Surgical History H/O breast biopsy H/O breast surgery History of tonsillectomy History of appendectomy Social History Alcohol intake: current Alcohol intake frequency: a few times a week Patient Tobacco Use Status: Never used Tobacco Physical Exam Vital Signs: Last Vital Signs Pulse 76 10/21/25 14:14 BP 108/70 10/21/25 14:14 Pulse Ox 98 10/21/25 14:14 Oxygen Delivery Method Room Air 10/21/25 14:14 BMI result Body Mass Index 31.1 Const Other: Thyroid gland is is of normal size weighs 15 g. There are no thyroid nodules palpated. Reflexes 2+ DTR Assessment & Plan Assessment & Plan (1) Hyperthyroidism: Code(s): E05.90 - Thyrotoxicosis, unspecified without thyrotoxic crisis or storm Category: Medical Plan: Is a 59-year-old white female with a history of Graves disease and hyperthyroidism currently being treated methimazole 20 mg. Dose was increased 1 week ago. Plan is to recheck thyroid function studies in about 5 weeks' time. Patient will then follow up with Dr. Leon upon her return from maternity leave in 2 months Coding Level of Care Code Est Pt Level 3 (35828) Diagnoses Hyperthyroidism E05.90
== END 2025-10-21 14:36 | disposition home or self-care (01) ==
LOC: HO.ENCR 14:09
PROVIDERS: PCP Student in an Organized Health Care Education/Training Program; Visit Provider Internal Medicine Endocrinology, Diabetes & Metabolism
DX: E05.90 Thyrotoxicosis, unspecified without thyrotoxic crisis or storm (principal)
CPT/HCPCS: 99213